=== PATIENT | male | born 1950 | race Caucasian/White ===

== ENCOUNTER 2020-09-20 11:22 | Day surgery (SDC) | payer MEDICARE, SELFPAY ==
[2020-09-16 10:52] VITALS: BMI 28.6
[2020-09-18 10:54] VITALS: BMI 27.2
--- NOTE | 2020-09-18 13:17 | HO.ANESPROP2 ---
Documented by User: Nany Myers 09/18/20 13:18 HPI - Anesthesia Eval Consult details Narrative: 70yo M for Colonoscopy PMFSH Active Problems Active Problems: All Active Problems (Updated 09/18/20 @ 10:53 by Olive Aguirre) Positive FIT (fecal immunochemical test) (Acute) Squamous cell cancer of multiple sites of skin of upper arm (Acute) Tobacco abuse (Acute) Bipolar 2 disorder (Acute) Hypercholesterolemia (Acute) Past Medical History Medical History Bipolar 2 disorder Compression fracture of T12 vertebra COVID-19 vaccine series completed History of renal calculi Hypercholesterolemia Periumbilical hernia Squamous cell cancer of multiple sites of skin of upper arm Tardive dyskinesia Tobacco abuse Tubular adenoma of colon Family History Family History Father No problems noted. Mother No problems noted. Paternal Grandmother CAD (coronary artery disease) Paternal Grandfather Pancreatic cancer Sister Dementia Myocardial infarction Blood clotting disorder Maciel-Stovin syndrome Surgical History Surgical History History of cataract surgery Hx of colonoscopy Hx of lithotripsy Social History Social History Alcohol intake: former Year quit: 1999 Smoking Status: Current every day smoker Tobacco Type: Cigarette Cigarettes Per Day: 12 Use of substances other than those prescribed or required for medical reasons: No Are you DNR?: No Advance Directives: No Advance Directives Information Provided: No Advance Directives on File: No Meds Allergies Allergy/AdvReac Type Severity Reaction Status Date / Time No Known Allergies Allergy Verified 09/18/20 10:53 Home Medications Medication Instructions Recorded Confirmed Last Taken Type No Known Home Meds 09/18/20 09/18/20 Unknown History Exam Exam Date and Time: September 18, 2020 1317 Height,Weight and Vital Signs: Height 5 ft 7 in Weight 78.925 kg Assessment and Plan Assessment Anesthesia Assessment: Chart Reviewed Documented by User: Mildred Ahn 09/20/20 11:51 PMFSH Past Medical History Medical History Bipolar 2 disorder Compression fracture of T12 vertebra COVID-19 vaccine series completed History of renal calculi Hypercholesterolemia Periumbilical hernia Squamous cell cancer of multiple sites of skin of upper arm Tardive dyskinesia Tobacco abuse Tubular adenoma of colon Family History Family History Father No problems noted. Mother No problems noted. Paternal Grandmother CAD (coronary artery disease) Paternal Grandfather Pancreatic cancer Sister Dementia Myocardial infarction Blood clotting disorder Maciel-Stovin syndrome Surgical History Surgical History History of cataract surgery Hx of colonoscopy Hx of lithotripsy Social History Social History Alcohol intake: former Year quit: 1999 Smoking Status: Current every day smoker Tobacco Type: Cigarette Cigarettes Per Day: 12 Use of substances other than those prescribed or required for medical reasons: No Are you DNR?: No Advance Directives: No Advance Directives Information Provided: No Advance Directives on File: No Meds Allergies Allergy/AdvReac Type Severity Reaction Status Date / Time No Known Allergies Allergy Verified 09/18/20 10:53 Home Medications Medication Instructions Recorded Confirmed Last Taken Type No Known Home Meds 09/18/20 09/18/20 Unknown History Exam Airway Mallampati Class: II TM Dist: >3cm Neck ROM: Full Assessment and Plan Assessment Anesthesia Assessment: Anesthesia Plan Discussed Final Anesthetic Review ASA Class: III Final Preanesthetic Review: No Changes in Pt Med Stat, Meds/Allgs Chart Reviewed, Consent Obtained/Reviewed and Anes Risks/Benef Reviewed Patient Risk: Intermediate Procedure Risk: Low Assessment/Block/Sedation in SS: Assess/Block/Sedation-SS Anesthetic Plan Anesthetic Plan: MAC: Disposition: Standard PACU
[2020-09-20] MEDS: Lactated Ringers 1,000 ML 100 ML IVCONT (12:02)
[2020-09-20 13:02] VITALS: BP 101/60; PULSE 60; RESP 16; TEMP 36.6; O2SAT 98
--- NOTE | 2020-09-20 13:08 | P.BOP_ITS ---
Brief Operative Note Date of Service: 09/20/20 Pre-op diagnosis: Screening Post-op diagnosis: other (Colon polyps) Procedure: Colonoscopy to the cecum and TI with biopsy and removal of polyps, snare polypectomies, and placement of 2 Resolution clips on polypectomy site at 20cm Surgeon: Florencio Mas Anesthesia: MAC Was an Calender Let Off Helper used for this Procedure?: No Estimated blood loss (mL): 4.0 Pathology: other (A. Transverse colon polyps B. Ascending colon polyps C. Polyp at 20cm) Condition: stable Disposition: PACU
[2020-09-20 13:17] VITALS: BP 131/78; PULSE 80; RESP 16; TEMP 36.6; O2SAT 96
--- NOTE | 2020-09-20 16:28 | OP_ITS ---
SURGEON: Florencio Mas MD INDICATIONS: Full consent has been obtained from him for this, including risks of bleeding and perforation. PREOPERATIVE DIAGNOSIS: POSTOPERATIVE DIAGNOSIS: PROCEDURE PERFORMED: Colonoscopy to cecum and terminal ileum with snare polypectomy, biopsy and removal of polyps, and placement of 2 resolution clips on the polypectomy at 20 cm. ESTIMATED BLOOD LOSS: COMPLICATIONS: ANESTHESIA: Monitored anesthesia care. ASSISTANTS: SPECIMENS: PREOPERATIVE DIAGNOSES: Colorectal cancer screening and personal history of tubular adenoma of the colon. POSTOPERATIVE DIAGNOSES: Colorectal cancer screening and personal history of tubular adenoma of the colon, colon polyps, diverticulosis, and internal hemorrhoids. DESCRIPTION OF PROCEDURE: The patient was placed in the left lateral decubitus position. The digital rectal exam revealed no abnormalities. The Olympus video pediatric colonoscope was entered into the rectum and advanced easily to the cecum. Once in the cecum, I did identify normal-appearing cecal pouch other than a diverticulum of the cecum. The terminal ileum was cannulated and appeared normal. The scope was withdrawn back in the colon. The entire cecum and ileocecal valve appeared normal otherwise. The scope was then slowly withdrawn assessing all mucosal surfaces carefully. Preparation was excellent. There was a moderate amount of diverticulosis in the ascending colon. In the more distal ascending colon, were 2 flat approximately 10 to 12 mm polyps, which were each snared and recovered by suction and placed in the same container. The polypectomy sites appeared clean, without any sign of residual polyp nor bleeding. In the transverse colon, were 2 flat approximately 4 mm polyps, which were each biopsied and completely removed with cold biopsy forceps. Also in the transverse colon, was an approximately 10 mm polyp, which was snared and recovered by suction. The polypectomy site appeared clean, without any sign of residual polyp nor bleeding. All of those polyps were placed in the same container. At 20 cm, was a relatively flat approximately 10 to 12 mm polyp, which was snared and recovered by suction. The polypectomy site appeared to be free of any residual polyp tissue, but there was some minimal oozing. Two clips were placed with good deployment and good hemostasis. I did not visualize any other polyps, colitis, nor angiodysplasia. There was a moderate amount of diverticulosis in the sigmoid colon. In the rectum, scope was retroflexed visualizing internal hemorrhoids, but no other pathology. The rectal mucosa appeared normal. The scope was straightened out and withdrawn from the patient. He tolerated the procedure well and was returned to the recovery area in stable condition. IMPRESSION: 1. Colon polyps, status post snare polypectomy, biopsy and removal, and placement of 2 resolution clips on the polypectomy site at 20 cm. 2. Diverticulosis. 3. Internal hemorrhoids. PLAN: The results of the pathology will be checked. I would recommend a repeat colonoscopy in 5 years. He was advised not to use any aspirin and NSAIDs for 1 week. He will otherwise see me on a p.r.n. basis. MD MAYA Rust/AMADOR / [phone] MTDD
== END 2020-09-20 14:08 | disposition home or self-care (01) ==
PROVIDERS: PCP Internal Medicine; Visit Provider Internal Medicine
PROC: 0DJD8ZZ Inspection of Lower Intestinal Tract, Via Natural or Artificial Opening Endoscopic (ICD-10-PCS; CPT 45378; principal; 2020-09-20 11:50)
DX: Z12.11 Encounter for screening for malignant neoplasm of colon (principal); Z86.010 Personal history of colon polyps; D12.2 Benign neoplasm of ascending colon; D12.3 Benign neoplasm of transverse colon; D12.5 Benign neoplasm of sigmoid colon; G24.01 Drug induced subacute dyskinesia; Z85.828 Personal history of other malignant neoplasm of skin; K57.30 Diverticulosis of large intestine without perforation or abscess without bleeding; K64.8 Other hemorrhoids; F17.210 Nicotine dependence, cigarettes, uncomplicated
CPT/HCPCS: 45385; 45380; 88305

== ENCOUNTER 2020-10-29 09:54 | Outpatient (REF) | payer MEDICARE, SELFPAY ==
[2020-10-29 10:51] LABS: Hematocrit 45.3 % (42-52); Hemoglobin 15.8 g/dl (14.0-18.0); Mean Corpuscular HGB Conc 34.9 g/dl (31.0-36.0); Mean Corpuscular Hemoglobin 33.7 pg (27.0-33.0); Mean Corpuscular Volume 96.6 fL (80-98); Mean Platelet Volume 10.4 fL (9.4-12.4); Platelet Count 215 X10*3/uL (160-400); Red Blood Count 4.69 X10*6/uL (4.60-5.80); Red Cell Distribution Width 12.7 % (11.0-16.0); White Blood Count 6.9 X10*3/uL (4.8-10.8)
[2020-10-29 11:16] LABS: Alanine Aminotransferase 11 U/L (0-40); Alkaline Phosphatase 87 U/L (39-117); Anion Gap 11 (12-20); Aspartate Amino Transferase 16 U/L (5-37); Bilirubin Total 0.5 mg/dL (0.0-1.0); Blood Urea Nitrogen 16 mg/dL (9-16); Calcium 9.4 mg/dL (8.4-10.2); Carbon Dioxide 28 mmol/L (22-29); Chloride 110 mmol/L (96-108); Cholesterol 220 mg/dL; Estimated Glomerular Filt Rate 56; Glucose Fasting 100 mg/dL (60-99); HDL Cholesterol 37 mg/dL; LDL Cholesterol Calculated 156 mg/dl; Potassium 4.6 mmol/L (3.3-5.1); Sodium 144 mmol/L (135-145); Total Protein 6.6 g/dL (6.5-8.0); Triglycerides 138 mg/dL
[2020-10-29 11:33] LABS: HBS Num1 5.89 mIU/mL (0-7.99); HBc Num1 0.07 S/CO (0.00-0.79); HBsAGNum1 0.21 S/CO (0.00-0.99); Hepatitis B Core Antibody Nonreactive (Nonreactive); Hepatitis B Surface Antigen Negative (Negative); ~HepC Num1 0.05 S/CO (0.00-0.79); ~Hepatitis B Surface Antibody NONREACTIVE (Nonreactive); ~Hepatitis C Antibody Nonreactive (Nonreactive)
[2020-10-29 11:37] LABS: Prostate Specific Antigen Scr 0.56 ng/mL (<0.05-4.0)
[2020-10-29 11:38] LABS: Glucose Urine UA NEG (NEG); Leukocyte Esterase Urine NEG (NEG); Nitrite Urine NEG (NEG); Urine Blood 1+ (NEG); Urine Ketones NEG (NEG); Urine Protein NEG (NEG-TRACE)
[2020-10-29 11:51] LABS: Appearance Urine CLEAR; Color Urine YELLOW
[2020-10-29 12:20] LABS: RBC Urine 0-2 /HPF (0); Squamous Epithelial Cell Urine TRACE /LPF; WBC Urine 0-2 /HPF (0-4)
== END 2020-10-29 09:55 | disposition home or self-care (01) ==
LOC: HO.LAB 09:54
PROVIDERS: PCP Internal Medicine; Visit Provider Physician Assistant
DX: Z01.84 Encounter for antibody response examination (principal); Z13.220 Encounter for screening for lipoid disorders; Z13.1 Encounter for screening for diabetes mellitus; Z11.3 Encounter for screening for infections with a predominantly sexual mode of transmission; Z12.5 Encounter for screening for malignant neoplasm of prostate; Z11.59 Encounter for screening for other viral diseases; I10 Essential (primary) hypertension
CPT/HCPCS: 36415; 80053; 80061; 81001; 84153; 85027; 86704; 86706; 86803; 87340

== ENCOUNTER 2021-09-23 09:27 | Outpatient (REF) | payer MEDICARE, SELFPAY ==
[2021-09-23 09:49] LABS: MANUAL DIFF FLAG NO
[2021-09-23 10:56] LABS: Estimated Average Glucose 105 mg/dL; Hemoglobin A1c % 5.3 %
[2021-09-23 11:00] LABS: Basophils Absolute Auto 0.1 X10*3/uL (0.0-0.2); Basophils Percent Auto 0.7 % (0-2); Eosinophils Absolute Auto 0.3 X10*3/uL (0.0-0.4); Eosinophils Percent Auto 4.4 % (0-4); Hematocrit 45.7 % (42.0-52.0); Hemoglobin 15.4 g/dl (14.0-18.0); Imm Gran Abs Auto 0.02 X10*3/uL (0.00-0.03); Imm Gran Pct Auto 0.3 % (0.0-0.4); Lymphocytes Absolute Auto 1.4 X10*3/uL (1.2-4.9); Lymphocytes Percent Auto 20.9 % (20-40); Mean Corpuscular HGB Conc 33.7 g/dl (31.0-36.0); Mean Corpuscular Volume 98.1 fL (80.0-98.0); Mean Platelet Volume 10.6 fL (9.4-12.4); Monocytes Absolute Auto 0.7 X10*3/uL (0.1-1.2); Monocytes Percent Auto 9.5 % (2-11); Neutrophils Absolute Auto 4.4 x10*3/uL (2.0-8.3); Neutrophils Percent Auto 64.2 % (45-73); Platelet Count 233 X10*3/uL (160-400); Red Blood Count 4.66 X10*6/uL (4.60-5.80); Red Cell Distribution Width 12.8 % (11.0-16.0); White Blood Count 6.8 X10*3/uL (4.8-10.8)
[2021-09-23 11:10] LABS: Alanine Aminotransferase 14 U/L (0-40); Albumin Level 3.9 g/dL (3.5-5.0); Alkaline Phosphatase 78 U/L (39-117); Anion Gap 11 (12-20); Aspartate Amino Transferase 15 U/L (5-37); Bilirubin Total 0.5 mg/dL (0.0-1.0); Blood Urea Nitrogen 15 mg/dL (9-16); Calcium 9.7 mg/dL (8.4-10.2); Carbon Dioxide 29 mmol/L (22-29); Chloride 108 mmol/L (96-108); Cholesterol 200 mg/dL; Estimated Glomerular Filt Rate 54; Glucose Random 100 mg/dL (60-115); HDL Cholesterol 34 mg/dL; LDL Cholesterol Calculated 145 mg/dl; Potassium 5.7 mmol/L (3.3-5.1); Sodium 142 mmol/L (135-145); Total Protein 6.7 g/dL (6.5-8.0); Triglycerides 106 mg/dL
[2021-09-23 11:31] LABS: Prostate Specific Antigen Scr 0.56 ng/mL (<0.05-4.0); Thyroid Stimulating Hormone 2.27 uIU/mL (0.32-4.0)
[2021-09-23 12:10] LABS: Vitamin B12 277 pg/mL (200-900)
== END 2021-09-23 09:28 | disposition home or self-care (01) ==
LOC: HO.LAB 09:27
PROVIDERS: PCP Internal Medicine; Visit Provider Internal Medicine
DX: Z12.5 Encounter for screening for malignant neoplasm of prostate (principal); R73.01 Impaired fasting glucose; E78.00 Pure hypercholesterolemia, unspecified
CPT/HCPCS: 36415; 80053; 80061; 82607; 82746; 83036; 84153; 84439; 84443; 85025

== ENCOUNTER 2021-10-10 10:23 | Outpatient (REF) | payer MEDICARE, SELFPAY ==
[2021-10-10 12:33] LABS: Anion Gap 13 (12-20); Blood Urea Nitrogen 22 mg/dL (9-16); Carbon Dioxide 26 mmol/L (22-29); Chloride 107 mmol/L (96-108); Estimated Glomerular Filt Rate 52; Glucose Random 95 mg/dL (60-115); Potassium 4.7 mmol/L (3.3-5.1); Sodium 141 mmol/L (135-145)
== END 2021-10-10 10:24 | disposition home or self-care (01) ==
LOC: HO.LAB 10:23
PROVIDERS: PCP Internal Medicine; Visit Provider Internal Medicine
DX: E87.5 Hyperkalemia (principal)
CPT/HCPCS: 36415; 80048

== ENCOUNTER 2021-11-10 22:55 | Emergency (ER) | payer MEDICARE, SELFPAY ==
--- NOTE | ~2021-11-10 | XR_ITS ---
EXAMINATION: XR CHEST CLINICAL INFORMATION: Chest pain COMPARISON: None TECHNIQUE: Frontal view of the chest was obtained. FINDINGS: Heart size upper limits of normal. No infiltrates, pleural effusions or lung masses are seen. There is no evidence of CHF. Degenerative changes are present in the spine. XR/XR chest 1V IMPRESSION: No acute intrathoracic disease.
--- NOTE | 2021-11-10 22:56 | ECG_ITS ---
Test Reason : cp Blood Pressure : / mmHG Vent. Rate : 058 BPM Atrial Rate : 058 BPM P-R Int : 178 ms QRS Dur : 086 ms QT Int : 432 ms P-R-T Axes : 051 024 077 degrees QTc Int : 424 ms Sinus bradycardia with marked sinus arrhythmia Posterior infarct , possibly acute Inferior injury pattern ACUTE [place] / STEMI Consider right ventricular involvement in acute inferior infarct Abnormal ECG When compared with ECG of 29-MAY-2016 15:55, ST elevation has replaced ST depression in Inferior leads ST more depressed Anterior leads Referred By: Generic ED Physician Electronically Signed By:JOANN GRAVES MD
[2021-11-10 23:03] VITALS: BP 136/60; BP 169/80; PULSE 56; PULSE 76; RESP 20; TEMP 36.8; O2SAT 100; O2SAT 98; BMI 27.1
--- NOTE | 2021-11-10 23:05 | ED_ITS ---
HPI - Chest Pain General Chief Complaint: Chest Pain Stated Complaint: chest pain Time Seen by Provider: 11/10/21 23:05 History of Present Illness HPI narrative: Patient is 71 years old male smoker with history of bipolar disorder hyperlipidemia impaired glucose tolerance test came to the ER for chest pain which localized mid chest radiating to jaw and left arm for last 40 minutes. Eddie carlyn denies any shortness of breath no nausea no vomiting never had similar chest pain in the past Related Data Home Medications Medication Instructions Recorded Confirmed No Known Home Meds 09/18/20 06/26/21 Allergies Allergy/AdvReac Type Severity Reaction Status Date / Time No Known Allergies Allergy Verified 11/10/21 23:03 Review of Systems Review of Systems: Yes all other systems are reviewed and are negative [facility] Past Medical History Medical History Bipolar 2 disorder Compression fracture of T12 vertebra COVID-19 vaccine series completed History of renal calculi Hypercholesterolemia Need for hepatitis B vaccination Periumbilical hernia Screening for diabetes mellitus (DM) Screening for hypercholesterolemia 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 Mother No problems noted. Paternal Grandmother CAD (coronary artery disease) Paternal Grandfather Pancreatic cancer Sister Dementia Myocardial infarction Blood clotting disorder Maciel-Stovin syndrome Social History Social History Housing: Apartment Alcohol intake: former Year quit: 1999 Patient Tobacco Use Status: Current everyday Tobacco user Tobacco use type: Cigarette Cigarettes Per Day: 14 e-Cigarette/Vaping Use: Never Used Second Hand Smoke Exposure: Yes Advance Directives: No service: No Current occupational status: retired Cognitive needs: No Hearing needs: No Vision needs: Yes Physical Exam Vital Signs: Vital Signs: Last Vital Signs Temp 98.3 F 11/10/21 23:03 Pulse 68 11/10/21 23:22 Resp 16 11/10/21 23:18 BP 138/72 11/10/21 23:22 Pulse Ox 97 11/10/21 23:18 O2 Del Method 11/10/21 23:18 BMI result Body Mass Index 27.1 Appearance: Alert. Oriented X3. No acute distress. Eyes: PERRLA, No Nystagmus ENT: Pharynx normal. Oral Mucosa moist Neck: Normal inspection. Neck supple. CVS: Normal heart rate and rhythm. Pulses normal no murmur rub or gallop. Respiratory: No respiratory distress. Equal air entry bilateral, no wheezing/rales/rhonchi Abdomen: Soft and nontender. Bowel sounds are present, no mass palpable, no CVA tenderness Skin: Skin warm and dry. Normal skin color. Normal skin turgor. Extremities: No lower extremity edema. No calf tenderness Neuro: Oriented X 3. No motor deficit. No sensory deficit.No cerebellar signs , cranial nerves II-XII intact MDM - Chest Pain MDM Narrative Medical decision making narrative: 2309 patient with posterior wall KS with slight ST coving in inferior leads case discussed with Dr. lujan at [facility] accepted the patient for transfer to CCU patient already received aspirin at home give Brilinta 180 mg heparin 5000 unit IV and nitroglycerin Medical Records Data Attestation: I reviewed the patient's medical records. Lab Data Attestation: I reviewed the patient's lab results. Result diagrams: 11/10/21 23:10 11/10/21 23:10 Labs: Lab Results 11/10/21 11/10/21 11/10/21 Range/Units 23:10 23:10 23:10 WBC 8.8 (4.8-10.8) X10*3/uL RBC 4.47 L (4.60-5.80) X10*6/uL Hgb 15.1 (14.0-18.0) g/dl Hct 42.7 (42.0-52.0) % MCV 95.5 (80.0-98.0) fL MCH 33.8 H (27.0-33.0) pg MCHC 35.4 (31.0-36.0) g/dl RDW 12.9 (11.0-16.0) % Plt Count 199 (160-400) X10*3/uL MPV 10.1 (9.4-12.4) fL Immature Gran % (Auto) 0.2 (0.0-0.4) % Neut % (Auto) 59.5 (45-73) % Lymph % (Auto) 27.0 (20-40) % Cecil % (Auto) 9.1 (2-11) % Eos % (Auto) 3.6 (0-4) % Baso % (Auto) 0.6 (0-2) % Lymph # (Auto) 2.4 (1.2-4.9) X10*3/uL Cecil # (Auto) 0.8 (0.1-1.2) X10*3/uL Eos # (Auto) 0.3 (0.0-0.4) X10*3/uL Baso # (Auto) 0.1 (0.0-0.2) X10*3/uL Abs Immat Gran (auto) 0.02 (0.00-0.03) X10*3/uL Absolute Neuts (auto) 5.2 (2.0-8.3) x10*3/uL Absolute Nucleated RBC 0.000 (0.0-0.012) X10*3/uL Nucleated RBC % (auto) 0.0 (0.0-0.2) /100WBC PT (10.0-13.1) SEC INR (0.9-1.1) APTT (24.1-38.0) SEC Sodium 140 (135-145) mmol/L Potassium 3.5 D (3.3-5.1) mmol/L Chloride 105 (96-108) mmol/L Carbon Dioxide 27 (22-29) mmol/L Anion Gap 12 (12-20) BUN 14 (9-16) mg/dL Creatinine 1.46 H (0.5-1.4) mg/dL Estim Creat Clear Calc 44.6 Estimated GFR 48 Random Glucose 137 H D (60-115) mg/dL Calcium 8.9 (8.4-10.2) mg/dL Troponin I High Sens 8.0 (<3.5-35.0) ng/L COVID-19 (ALIA) (Negative) COVID-19 Clin Com 11/10/21 11/10/21 Range/Units 23:10 23:10 WBC (4.8-10.8) X10*3/uL RBC (4.60-5.80) X10*6/uL Hgb (14.0-18.0) g/dl Hct (42.0-52.0) % MCV (80.0-98.0) fL MCH (27.0-33.0) pg MCHC (31.0-36.0) g/dl RDW (11.0-16.0) % Plt Count (160-400) X10*3/uL MPV (9.4-12.4) fL Immature Gran % (Auto) (0.0-0.4) % Neut % (Auto) (45-73) % Lymph % (Auto) (20-40) % Cecil % (Auto) (2-11) % Eos % (Auto) (0-4) % Baso % (Auto) (0-2) % Lymph # (Auto) (1.2-4.9) X10*3/uL Cecil # (Auto) (0.1-1.2) X10*3/uL Eos # (Auto) (0.0-0.4) X10*3/uL Baso # (Auto) (0.0-0.2) X10*3/uL Abs Immat Gran (auto) (0.00-0.03) X10*3/uL Absolute Neuts (auto) (2.0-8.3) x10*3/uL Absolute Nucleated RBC (0.0-0.012) X10*3/uL Nucleated RBC % (auto) (0.0-0.2) /100WBC PT 11.7 (10.0-13.1) SEC INR 1.0 (0.9-1.1) APTT 31.6 (24.1-38.0) SEC Sodium (135-145) mmol/L Potassium (3.3-5.1) mmol/L Chloride (96-108) mmol/L Carbon Dioxide (22-29) mmol/L Anion Gap (12-20) BUN (9-16) mg/dL Creatinine (0.5-1.4) mg/dL Estim Creat Clear Calc Estimated GFR Random Glucose (60-115) mg/dL Calcium (8.4-10.2) mg/dL Troponin I High Sens (<3.5-35.0) ng/L COVID-19 (ALIA) Negative (Negative) COVID-19 Clin Com See Note ECG Data ECG #1: Attestation: I personally reviewed and interpreted this ECG as follows: Prior ECG tracings: not available for review Interpretation: sinus bradycardia heart rate [address] depression lead V1 V2 V3 with slight ST elevation in lead 3 and AVF suggestive of STEMI inferior posterior Critical Care Time Critical Care Time Critical Care Time: Yes Total Critical Care Time: 40 Attestation: I spent 40 minutes of critical care, with interventions, assessments, speaking to patient, consultants, and family. Discharge Plan Discharge Clinical Impression: ST elevation myocardial infarction (STEMI) Patient Disposition: [facility] Transfer Details: To [facility] under Dr Wilkins, Dr lujan Prescriptions: No Action No Known Home Meds Interventions: Acute Care Transfer Worksheet (ED) Last Done: 11/10/21 23:39 Discharge Date/Time: 11/10/21 23:41
[2021-11-10 23:11] VITALS: BP 169/90; PULSE 50
[2021-11-10] MEDS: Nitroglycerin 0.4 MG TAB.SUBL SUBLINGUAL ×2 (23:11→23:22)
--- NOTE | 2021-11-10 23:11 | PC.NURSE ---
@2307 DR DE LA FUENTE REQUESTS CALL OUT TO [facility] STAT LINE FOR STEMI PROTOCOL STAT CALL CENTER RN TAKES CALL BACK INFO, GIVES DR DR REEDER MD TO CALL US BACK @2309 [facility] CALLED FOR STEMI STANDBY @ DR MANCUSO REQUEST DISPATCH ANSWERS AND STATES THEY WILL SEND SOMEONE OVER RIGHT AWAY FOR STANDBY @2310 DR REEDER CALLS BACK TO SPEAK WITH DR SUDHAKAR DE LA FUENTE TAKES OVER CALL RIGHT AWAY @ 2313 DR DE LA FUENTE STATES PT TO GO TO CCU FOR CATH IN NEAR FUTURE
[2021-11-10] MEDS: Heparin Sodium,Porcine 5,000 UNIT/ML VIAL 5000 UNIT IVPUSH (23:14)
[2021-11-10] MEDS: Ticagrelor 90 MG TABLET 180 MG PO (23:14)
[2021-11-10 23:17] LABS: MANUAL DIFF FLAG NO
--- NOTE | 2021-11-10 23:17 | PC.NURSE ---
@7306 [facility] PT TX LINE CALLED TO VERIFY ROOM ASSIGNMENT VANE ANSWERS STATES AWAITING ROOM ASSIGNMENT @ THIS TIME, WILL CALL WHEN AVBAILABLE @ 2320 [facility] CALLED TO DO A CALL BOOK AND HOLD @[phone] [facility] PT TX LINE CALLS TO SAY THERE IS ROOM ASSIGNMENT [facility], MM, BED 16 RN TO RN [phone] ORTA FAX FACE SHEET TO [phone] [facility] HERE TO TRANSPORT NOW @ 11:22
[2021-11-10 23:18] VITALS: BP 137/82; PULSE 62; RESP 16; O2SAT 97
[2021-11-10 23:22] VITALS: BP 138/72; PULSE 68
[2021-11-10 23:26] LABS: Basophils Absolute Auto 0.1 X10*3/uL (0.0-0.2); Basophils Percent Auto 0.6 % (0-2); Eosinophils Absolute Auto 0.3 X10*3/uL (0.0-0.4); Eosinophils Percent Auto 3.6 % (0-4); Hematocrit 42.7 % (42.0-52.0); Hemoglobin 15.1 g/dl (14.0-18.0); Imm Gran Abs Auto 0.02 X10*3/uL (0.00-0.03); Imm Gran Pct Auto 0.2 % (0.0-0.4); Lymphocytes Absolute Auto 2.4 X10*3/uL (1.2-4.9); Mean Corpuscular HGB Conc 35.4 g/dl (31.0-36.0); Mean Corpuscular Hemoglobin 33.8 pg (27.0-33.0); Mean Corpuscular Volume 95.5 fL (80.0-98.0); Mean Platelet Volume 10.1 fL (9.4-12.4); Monocytes Absolute Auto 0.8 X10*3/uL (0.1-1.2); Monocytes Percent Auto 9.1 % (2-11); Neutrophils Absolute Auto 5.2 x10*3/uL (2.0-8.3); Neutrophils Percent Auto 59.5 % (45-73); Platelet Count 199 X10*3/uL (160-400); Red Blood Count 4.47 X10*6/uL (4.60-5.80); Red Cell Distribution Width 12.9 % (11.0-16.0); White Blood Count 8.8 X10*3/uL (4.8-10.8)
[2021-11-10 23:32] LABS: Prothrombin Time 11.7 SEC (10.0-13.1)
[2021-11-10 23:34] LABS: Partial Thromboplastin Time 31.6 SEC (24.1-38.0)
[2021-11-10] MEDS: Heparin Sodium,Porcine/1/2NS 25,000 UNIT/250 ML IV.SOLN 9.42 UNIT IVCONT (23:38)
[2021-11-10 23:43] LABS: Anion Gap 12 (12-20); Blood Urea Nitrogen 14 mg/dL (9-16); Calcium 8.9 mg/dL (8.4-10.2); Carbon Dioxide 27 mmol/L (22-29); Chloride 105 mmol/L (96-108); Creatinine Clr Calc Pharmacy 44.6; Estimated Glomerular Filt Rate 48; Glucose Random 137 mg/dL (60-115); Potassium 3.5 mmol/L (3.3-5.1); Sodium 140 mmol/L (135-145)
--- NOTE | 2021-11-10 23:57 | PC.NURSE ---
rn to rn with Steph JOHNSON at [facility]
[2021-11-11 00:10] LABS: COVID-19 Test Negative (Negative); IDNOW Serial# 08D9AD1C
== END 2021-11-10 23:41 | disposition short-term general hospital (02) ==
PROVIDERS: Emergency Provider Internal Medicine
DX: I21.3 ST elevation (STEMI) myocardial infarction of unspecified site (principal); R07.89 Other chest pain; E78.5 Hyperlipidemia, unspecified; F17.210 Nicotine dependence, cigarettes, uncomplicated; Z71.6 Tobacco abuse counseling; Z20.822 Contact with and (suspected) exposure to COVID-19; Z79.899 Other long term (current) drug therapy
CPT/HCPCS: 36415; 71045; 80048; 84484; 85025; 85610; 85730; 87635; 93005; 96374; 99285

== ENCOUNTER → 2022-01-12 11:23 | Outpatient (BNVA) | payer MEDICARE, SELFPAY | PROVIDERS: PCP Internal Medicine; Referring Provider Internal Medicine; Visit Provider Internal Medicine Cardiovascular Disease | DX: I25.2 Old myocardial infarction (principal); Z87.891 Personal history of nicotine dependence; Z95.5 Presence of coronary angioplasty implant and graft; Z79.82 Long term (current) use of aspirin; Z79.899 Other long term (current) drug therapy | CPT/HCPCS: 99202 ==

== ENCOUNTER 2022-03-04 10:23 | Outpatient (REF) | payer MEDICARE, SELFPAY ==
[2022-03-04 11:15] LABS: Anion Gap 14 (12-20); Blood Urea Nitrogen 19 mg/dL (9-16); Calcium 9.6 mg/dL (8.4-10.2); Carbon Dioxide 29 mmol/L (22-29); Chloride 106 mmol/L (96-108); Cholesterol 128 mg/dL; Estimated Glomerular Filt Rate 50; Glucose Random 104 mg/dL (60-115); HDL Cholesterol 44 mg/dL; LDL Cholesterol Calculated 61 mg/dl; Potassium 4.9 mmol/L (3.3-5.1); Sodium 144 mmol/L (135-145); Triglycerides 119 mg/dL
== END 2022-03-04 10:24 | disposition home or self-care (01) ==
LOC: HO.LAB 10:23
PROVIDERS: PCP Internal Medicine; Visit Provider Physician Assistant
DX: I25.10 Atherosclerotic heart disease of native coronary artery without angina pectoris (principal)
CPT/HCPCS: 36415; 80048; 80061

== ENCOUNTER 2022-06-23 09:25 | Outpatient (REF) | payer MEDICARE, SELFPAY ==
[2022-06-23 09:38] LABS: MANUAL DIFF FLAG NO
[2022-06-23 10:09] LABS: Basophils Absolute Auto 0.1 X10*3/uL (0.0-0.2); Basophils Percent Auto 0.7 % (0-2); Eosinophils Absolute Auto 0.4 X10*3/uL (0.0-0.4); Eosinophils Percent Auto 5.6 % (0-4); Hematocrit 45.6 % (42.0-52.0); Hemoglobin 15.6 g/dl (14.0-18.0); Imm Gran Abs Auto 0.02 X10*3/uL (0.00-0.03); Imm Gran Pct Auto 0.3 % (0.0-0.4); Lymphocytes Absolute Auto 1.8 X10*3/uL (1.2-4.9); Lymphocytes Percent Auto 24.9 % (20-40); Mean Corpuscular HGB Conc 34.2 g/dl (31.0-36.0); Mean Corpuscular Hemoglobin 33.1 pg (27.0-33.0); Mean Corpuscular Volume 96.8 fL (80.0-98.0); Mean Platelet Volume 10.5 fL (9.4-12.4); Monocytes Absolute Auto 0.7 X10*3/uL (0.1-1.2); Monocytes Percent Auto 9.8 % (2-11); Neutrophils Absolute Auto 4.2 x10*3/uL (2.0-8.3); Neutrophils Percent Auto 58.7 % (45-73); Platelet Count 205 X10*3/uL (160-400); Red Blood Count 4.71 X10*6/uL (4.60-5.80); Red Cell Distribution Width 12.5 % (11.0-16.0); White Blood Count 7.1 X10*3/uL (4.8-10.8)
[2022-06-23 10:21] LABS: Estimated Average Glucose 114 mg/dL; Hemoglobin A1c % 5.6 %
[2022-06-23 11:21] LABS: Alanine Aminotransferase 57 U/L (0-40); Alkaline Phosphatase 81 U/L (39-117); Anion Gap 12 (12-20); Aspartate Amino Transferase 39 U/L (5-37); Bilirubin Total 1.6 mg/dL (0.0-1.0); Blood Urea Nitrogen 25 mg/dL (9-16); Calcium 9.2 mg/dL (8.4-10.2); Carbon Dioxide 29 mmol/L (22-29); Chloride 107 mmol/L (96-108); Cholesterol 112 mg/dL; Estimated Glomerular Filt Rate 45; Glucose Random 96 mg/dL (60-115); HDL Cholesterol 39 mg/dL; LDL Cholesterol Calculated 52 mg/dl; Potassium 4.5 mmol/L (3.3-5.1); Sodium 143 mmol/L (135-145); Total Protein 6.6 g/dL (6.5-8.0); Triglycerides 108 mg/dL
[2022-06-23 11:31] LABS: Folate 15.8 ng/mL (> or = 4.0); Free T4 (Free Thyroxine) 0.93 ng/dL (0.71-1.85); Prostate Specific Antigen Scr 0.55 ng/mL (<0.05-4.0); Thyroid Stimulating Hormone 4.53 uIU/mL (0.32-4.0); Vitamin B12 454 pg/mL (200-900)
== END 2022-06-23 09:26 | disposition home or self-care (01) ==
LOC: HO.LAB 09:25
PROVIDERS: PCP Internal Medicine; Visit Provider Internal Medicine
DX: I25.10 Atherosclerotic heart disease of native coronary artery without angina pectoris (principal); E78.00 Pure hypercholesterolemia, unspecified; R79.89 Other specified abnormal findings of blood chemistry; Z12.5 Encounter for screening for malignant neoplasm of prostate
CPT/HCPCS: 36415; 80053; 80061; 82607; 82746; 83036; 84153; 84439; 84443; 85025

== ENCOUNTER 2022-06-26 08:18 | Outpatient (REF) | payer MEDICARE, SELFPAY ==
[2022-06-26 10:04] LABS: Free T4 (Free Thyroxine) 0.91 ng/dL (0.71-1.85); HBS Num1 3.58 mIU/mL (0-7.99); HBc Num1 0.09 S/CO (0.00-0.79); HBsAGNum1 0.36 S/CO (0.00-0.99); Hepatitis B Core Antibody Nonreactive (Nonreactive); Hepatitis B Surface Antigen Negative (Negative); ~HepC Num1 0.07 S/CO (0.00-0.79); ~Hepatitis B Surface Antibody NONREACTIVE (Nonreactive); ~Hepatitis C Antibody Nonreactive (Nonreactive)
== END 2022-06-26 08:19 | disposition home or self-care (01) ==
LOC: HO.LAB 08:18
PROVIDERS: PCP Internal Medicine; Visit Provider Internal Medicine
DX: R94.6 Abnormal results of thyroid function studies (principal)
CPT/HCPCS: 36415; 84439; 86704; 86706; 86803; 87340

== ENCOUNTER → 2022-07-06 12:50 | Outpatient (BNVA) | payer MEDICARE, SELFPAY | PROVIDERS: PCP Internal Medicine; Referring Provider Internal Medicine; Visit Provider Internal Medicine Cardiovascular Disease | DX: I25.2 Old myocardial infarction (principal); R06.09 Other forms of dyspnea; Z79.82 Long term (current) use of aspirin; Z79.899 Other long term (current) drug therapy; Z87.891 Personal history of nicotine dependence; Z95.5 Presence of coronary angioplasty implant and graft | CPT/HCPCS: 99212 ==

== ENCOUNTER 2022-07-16 12:26 | Outpatient (REF) | payer MEDICARE, SELFPAY ==
[2022-07-16 14:18] LABS: Alanine Aminotransferase 44 U/L (0-40); Albumin Level 4.1 g/dL (3.5-5.0); Alkaline Phosphatase 93 U/L (39-117); Anion Gap 12 (12-20); Aspartate Amino Transferase 35 U/L (5-37); Bilirubin Total 1.5 mg/dL (0.0-1.0); Blood Urea Nitrogen 19 mg/dL (9-16); Carbon Dioxide 27 mmol/L (22-29); Chloride 107 mmol/L (96-108); Estimated Glomerular Filt Rate 55; Glucose Random 95 mg/dL (60-115); Sodium 141 mmol/L (135-145)
[2022-07-16 14:25] LABS: Free T4 (Free Thyroxine) 1.15 ng/dL (0.71-1.85); Thyroid Stimulating Hormone 1.88 uIU/mL (0.32-4.0)
[2022-07-17 08:08] LABS: HBS Num1 3.28 mIU/mL (0-7.99); HBc Num1 0.14 S/CO (0.00-0.79); HBsAGNum1 0.36 S/CO (0.00-0.99); Hepatitis B Core Antibody Nonreactive (Nonreactive); Hepatitis B Surface Antigen Negative (Negative); ~HepC Num1 0.14 S/CO (0.00-0.79); ~Hepatitis B Surface Antibody NONREACTIVE (Nonreactive); ~Hepatitis C Antibody Nonreactive (Nonreactive)
== END 2022-07-16 12:27 | disposition home or self-care (01) ==
LOC: HO.LAB 12:26
PROVIDERS: PCP Internal Medicine; Visit Provider Internal Medicine
DX: R79.89 Other specified abnormal findings of blood chemistry (principal); R94.6 Abnormal results of thyroid function studies
CPT/HCPCS: 36415; 80053; 84439; 84443; 86704; 86706; 86803; 87340

== ENCOUNTER 2022-07-23 08:25 | Outpatient (REF) | payer MEDICARE, SELFPAY ==
--- NOTE | ~2022-07-23 | US_ITS ---
EXAMINATION: US ABDOMEN COMPLETE CLINICAL INFORMATION: Elevated LFTs. COMPARISON: Ultrasound retroperitoneal limited (renal only) 12/28/2017. CT abdomen and pelvis without contrast 10/23/2017. Ultrasound retroperitoneal limited (renal only) 12/01/2016. X-ray abdomen KUB 05/27/2016 and 01/15/2016. TECHNIQUE: Real-time imaging of the abdominal viscera. FINDINGS: PANCREAS: The pancreas appears unremarkable, without masses or ductal dilatation, with the exception of the tail which is obscured by bowel gas. ABDOMINAL AORTA: Atherosclerotic changes are seen in the abdominal aorta without evidence of aneurysm. INFERIOR VENA CAVA: Visualized portions are normal. LIVER: The liver is normal in size. The liver contour is normal. Parenchymal echogenicity is normal. No focal hepatic lesion. There is no intrahepatic biliary duct dilatation seen. GALLBLADDER: Normal. The gallbladder is physiologically distended without evidence of stones, sludge, polyps, wall thickening or pericholecystic fluid. COMMON BILE DUCT: Normal in caliber measuring 0.3 cm in diameter. RIGHT KIDNEY: Two stones are noted at the lower pole of the right kidney measuring 3 mm in size each. No hydronephrosis or focal parenchymal lesions. The kidney measures 11.2 cm in maximum dimension. LEFT KIDNEY: Two stones are noted at the lower pole the left kidney measuring 3 mm in size each. No hydronephrosis or focal parenchymal lesions. The kidney measures 11.1 cm in maximum dimension. SPLEEN: Normal. The spleen measures 11.4 cm in maximum dimension. FREE FLUID: None. US/US abdomen complete IMPRESSION: Bilateral nonobstructing renal calculi.
== END 2022-07-23 08:26 | disposition home or self-care (01) ==
LOC: HO.US 08:25
PROVIDERS: PCP Internal Medicine; Visit Provider Internal Medicine
DX: R79.89 Other specified abnormal findings of blood chemistry (principal)
CPT/HCPCS: 76700

== ENCOUNTER 2022-11-09 13:36 | Outpatient (AMB) | payer MEDICARE, SELFPAY ==
[2022-11-09 14:10] VITALS: BP 88/48; PULSE 67; O2SAT 98; BMI 29.8
--- NOTE | 2022-11-09 14:10 | MHC.OFFVIS ---
Intake Vital Signs 11/09/22 14:10 Height 5 ft 7 in Weight 190 lb BMI 29.8 BP 88/48 L Blood Pressure Location Lt brachial Position Sitting Pulse 67 Pulse Source Pulse Oximeter Pulse Oximetry (%) 98 Oxygen Delivery Method Room Air Intake Visit Reasons: 4 month f/u Intake Note: 4 mo follow up chest pain,one year since cardiac procedure @ [facility] 11/10/2021, states no noticeable pain, pt states more aware of limitations. Has a question about Brilanta Accompanied by: Self / Same As Patient Allergies No Known Allergies Allergy (Verified 11/09/22 14:15) Medication List - Last Reconciled 11/09/22 by Law Irizarry MD aspirin 81 mg PO DAILY atorvastatin 80 mg PO DAILY 90 days metoprolol succinate ER 25 mg PO DAILY 90 days nicotine 1 patch transdermal DAILY ticagrelor 90 mg PO BID 90 days HPI HPI Comments History of Present Illness Details 72-year-old gentleman who has background history of tobacco abuse, bipolar disorder, hyperlipidemia and impaired fasting glucose levels who presented to [facility] in October 2021 with chest pain. He was experiencing indigestion like feeling which was not improving and some arm discomfort. His EKG showed posterior wall WA and was transferred emergently to [facility]. He underwent cardiac catheterization at that time by Dr. 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 He underwent drug-eluting stent with a 3 x 18 mm resolute brody. 11/09/22: He is here for follow-up. He has been doing well. No chest pain or shortness of breath. He has been taking medication regularly. He is asking whether he can stop Brilinta as 1 year has passed since is PCI. [facility] Medical History Bipolar 2 disorder Compression fracture of T12 vertebra COVID-19 vaccine series completed History of renal calculi Hypercholesterolemia Need for hepatitis B vaccination Periumbilical hernia Screening for diabetes mellitus (DM) Screening for hypercholesterolemia Squamous cell cancer of multiple sites of skin of upper arm Tardive dyskinesia Tobacco abuse Tubular adenoma of colon Surgical History Coronary angioplasty status History of cataract surgery Hx of colonoscopy Hx of lithotripsy Family History Father No problems noted. Mother No problems noted. Paternal Grandmother CAD (coronary artery disease) Paternal Grandfather Pancreatic cancer Sister Dementia Myocardial infarction Blood clotting disorder Maciel-Stovin syndrome Social History Housing: Apartment Alcohol intake: former Year quit: 1999 Patient Tobacco Use Status: Former Tobacco user Quit Date: October 2021 Tobacco use type: Cigarette Cigarettes Per Day: 14 e-Cigarette/Vaping Use: Never Used Second Hand Smoke Exposure: Yes service: No Current occupational status: retired Cognitive needs: No Hearing needs: No Vision needs: Yes Review of Systems Const Denies chills, Denies fatigue, Denies fever(s), Denies frequent falls, Denies weakness and Denies weight loss ENT Denies dizziness Card Denies chest pain, Denies leg edema, Denies lightheadedness, Denies palpitations, Denies dyspnea, Denies dyspnea on exertion, Denies orthopnea and Denies other (loss of consciousness) Resp Denies cough, Denies dyspnea and Denies dyspnea on exertion GI Denies hematochezia and Denies change in stool character Musc Denies abnormal gait, Denies muscle weakness, Denies numbness, Denies radiating pain into limb and Denies tingling Neuro Denies abnormal gait, Denies dizziness, Denies frequent falls, Denies numbness, Denies tingling and Denies weakness Endo Denies fatigue and Denies palpitations Physical Exam Vital Signs: Last Vital Signs Pulse 67 11/09/22 14:10 BP 88/48 L 11/09/22 14:10 Pulse Ox 98 11/09/22 14:10 Oxygen Delivery Method Room Air 11/09/22 14:10 BMI result Body Mass Index 29.8 Manual blood pressure 110/60. GENERAL APPEARANCE: in no acute distress, pleasant. NECK: no carotid bruit, no jugular venous distention. SKIN: no suspicious lesions, warm and dry. HEART: no murmurs, regular rate and rhythm. LUNGS: clear to auscultation bilaterally. ABDOMEN: soft, nontender. EXTREMITIES: no edema. PERIPHERAL PULSES: equal. NEUROLOGIC: No gross deficits, AAO X 3 Assessment & Plan Assessment & Plan (1) Stable angina: Code(s): I20.8 - Other forms of angina pectoris (2) Hypercholesterolemia: Code(s): E78.00 - Pure hypercholesterolemia, unspecified Plan 72-year-old gentleman here for follow-up. Underwent previous PCI for ST elevation WA in October [address] Mckeon. He can stop Brilinta at this stage. He should stay on aspirin lifelong. Blood pressure is well controlled. He was advised to hydrate himself in the summertime. He should have fast lipid panel once a year. His target LDL is less than 70. Thank you for allowing me to participate in the care of your patient. Please feel free to contact me if you have any questions. Medications: Discontinued ticagrelor Discontinued Reason: Doctor's Order 90 mg PO BID 180 tabs 1RF [address] I21[address]3 - ST elevation (STEMI) myocardial infarction of unspecified site Coding Level of Care Code Est Pt Level 4 (89719) Diagnoses Stable angina I20.8 Hypercholesterolemia E78.00
== END 2022-11-09 14:33 | disposition home or self-care (01) ==
PROVIDERS: Visit Provider Internal Medicine Cardiovascular Disease
DX: I20.8 Other forms of angina pectoris (principal); E78.00 Pure hypercholesterolemia, unspecified
CPT/HCPCS: 99214

== ENCOUNTER → 2022-11-09 13:36 | Outpatient (BNVA) | payer MEDICARE, SELFPAY | PROVIDERS: Visit Provider Internal Medicine Cardiovascular Disease | DX: R07.9 Chest pain, unspecified (principal); I20.8 Other forms of angina pectoris; I21.3 ST elevation (STEMI) myocardial infarction of unspecified site; I10 Essential (primary) hypertension; R73.01 Impaired fasting glucose; E78.00 Pure hypercholesterolemia, unspecified; F31.9 Bipolar disorder, unspecified; Z72.0 Tobacco use; Z95.5 Presence of coronary angioplasty implant and graft | CPT/HCPCS: 99212 ==

== ENCOUNTER 2023-04-06 08:06 | Outpatient (REF) | payer MEDICARE, SELFPAY ==
[2023-04-06 08:32] LABS: MANUAL DIFF FLAG NO
[2023-04-06 08:47] LABS: Basophils Absolute Auto 0.1 X10*3/uL (0.0-0.2); Basophils Percent Auto 0.9 % (0-2); Eosinophils Absolute Auto 0.3 X10*3/uL (0.0-0.4); Eosinophils Percent Auto 4.2 % (0-4); Hemoglobin 14.9 g/dl (14.0-18.0); Imm Gran Abs Auto 0.01 X10*3/uL (0.00-0.03); Imm Gran Pct Auto 0.1 % (0.0-0.4); Lymphocytes Absolute Auto 1.9 X10*3/uL (1.2-4.9); Lymphocytes Percent Auto 28.3 % (20-40); Mean Corpuscular HGB Conc 33.9 g/dl (31.0-36.0); Mean Corpuscular Volume 97.3 fL (80.0-98.0); Mean Platelet Volume 10.8 fL (9.4-12.4); Monocytes Absolute Auto 0.7 X10*3/uL (0.1-1.2); Monocytes Percent Auto 9.9 % (2-11); Neutrophils Absolute Auto 3.8 x10*3/uL (2.0-8.3); Neutrophils Percent Auto 56.6 % (45-73); Platelet Count 222 X10*3/uL (160-400); Red Blood Count 4.52 X10*6/uL (4.60-5.80); Red Cell Distribution Width 12.6 % (11.0-16.0); White Blood Count 6.7 X10*3/uL (4.8-10.8)
[2023-04-06 10:02] LABS: Free T4 (Free Thyroxine) 0.98 ng/dL (0.71-1.85); Thyroid Stimulating Hormone 3.75 uIU/mL (0.32-4.0)
[2023-04-06 10:21] LABS: Folate 10.8 ng/mL (> or = 4.0); Prostate Specific Antigen Scr 0.69 ng/mL (<0.05-4.0); Vitamin B12 369 pg/mL (200-900)
[2023-04-06 10:24] LABS: Alanine Aminotransferase 30 U/L (0-40); Albumin Level 3.9 g/dL (3.5-5.0); Alkaline Phosphatase 75 U/L (39-117); Anion Gap 12 (12-20); Aspartate Amino Transferase 26 U/L (5-37); Bilirubin Total 0.9 mg/dL (0.0-1.0); Blood Urea Nitrogen 18 mg/dL (9-16); Calcium 9.4 mg/dL (8.4-10.2); Carbon Dioxide 28 mmol/L (22-29); Chloride 108 mmol/L (96-108); Cholesterol 98 mg/dL (<200); Estimated Glomerular Filt Rate 53; Glucose Random 95 mg/dL (60-115); HDL Cholesterol 34 mg/dL (>40); LDL Cholesterol Calculated 46 mg/dL (<100); Potassium 4.5 mmol/L (3.3-5.1); Sodium 143 mmol/L (135-145); Triglycerides 93 mg/dL (<150)
== END 2023-04-06 08:07 | disposition home or self-care (01) ==
LOC: HO.LAB 08:06
PROVIDERS: PCP Internal Medicine; Visit Provider Internal Medicine
DX: I25.10 Atherosclerotic heart disease of native coronary artery without angina pectoris (principal); E78.00 Pure hypercholesterolemia, unspecified; Z12.5 Encounter for screening for malignant neoplasm of prostate
CPT/HCPCS: 36415; 80053; 80061; 82607; 82746; 84153; 84439; 84443; 85025

== ENCOUNTER 2023-04-08 10:43 | Outpatient (AMB) | payer MEDICARE, SELFPAY ==
--- NOTE | 2023-04-08 10:47 | AM.OFFVISMDC ---
Intake Vital Signs 04/08/23 10:48 Height 5 ft 7 in Weight 195 lb 8 oz BMI 30.6 BP 126/76 Blood Pressure Location Lt brachial Position Sitting Pulse 67 Pulse Source Pulse Oximeter Pulse Oximetry (%) 97 Oxygen Delivery Method Room Air Intake Visit Reasons: cad, hypercholesterol, schedule for SWV Amf Mechanic Required: No Accompanied by: Self / Same As Patient Allergies No Known Allergies Allergy (Verified 04/08/23 11:07) Medication List - Last Reconciled 04/08/23 by NISHA No aspirin 81 mg PO DAILY atorvastatin 80 mg PO DAILY 90 days metoprolol succinate ER 25 mg PO DAILY 90 days HPI HPI Comments History of Present Illness Details Patient is a 73-year-old male who presents today for subsequent wellness visit. Had COVID 3 weeks ago, states feeling much better. Patient is up-to-date with health preventative screenings. Patient is up-to-date with his immunizations. Patient reported that she has had a pneumonia vaccine, not on file [place] of care was reviewed with the patient and he was provided with a written screening schedule. Patient has a healthcare proxy in place and patient was encouraged to complete previously provided MOLST form and provide office copy to be scanned to chart. Complete blood work done 04/06/2023 reviewed with patient in office today. [facility] Medical History Screening for hypercholesterolemia Screening for diabetes mellitus (DM) Need for hepatitis B vaccination COVID-19 vaccine series completed Compression fracture of T12 vertebra Periumbilical hernia Tubular adenoma of colon Tardive dyskinesia History of renal calculi Squamous cell cancer of multiple sites of skin of upper arm Tobacco abuse Bipolar 2 disorder Hypercholesterolemia Surgical History Coronary angioplasty status Hx of lithotripsy Hx of colonoscopy History of cataract surgery Family History Father No problems noted. Mother No problems noted. Paternal Grandmother CAD (coronary artery disease) Paternal Grandfather Pancreatic cancer Sister Dementia Myocardial infarction Blood clotting disorder Maciel-Stovin syndrome Social History Housing: Apartment Alcohol intake: former Year quit: 1999 Patient Tobacco Use Status: Former Tobacco user Quit Date: October 2021 Tobacco use type: Cigarette Cigarettes Per Day: 14 e-Cigarette/Vaping Use: Never Used Second Hand Smoke Exposure: Yes service: No Current occupational status: retired Cognitive needs: No Hearing needs: No Vision needs: Yes Questionnaire Medicare Wellness Checkup [age] What gender do you identify with?: male During the past 4 weeks, how much have you been bothered by emotional problems such as feeling anxious, depressed, irritable, sad or downhearted, and blue?: slightly During the past 4 weeks, has your physical & emotional health limited your social activities with family, friends, neighbors, or groups?: quite a bit During the past 4 weeks, how much bodily pain have you generally had?: very mild pain During the past 4 weeks, was someone available to help you if you needed & wanted help?: yes, a little During the past 4 weeks, what was the hardest physical activity you could do for at least 2 minutes?: heavy Can you get to places out of walking distance without help? (For eg., can you travel alone on buses, taxis or drive your car?): Yes Can you go shopping for groceries or clothes without someone's help?: Yes Can you prepare your own meals?: Yes Can you do your housework without help?: Yes Because of any health problems, do you need the help of another person with your personal care needs such as eating, bathing, dressing or getting around the house?: No Can you handle your own money without help?: Yes During the past 4 weeks, how would you rate your health in general?: fair During the past 4 weeks how have things been going for you?: good & bad parts about equal Are you having difficulties driving your car?: not applicable, I don't use a car Do you always fasten your seat belt when you are in a car?: yes, sometimes During past 4 weeks, have you been bothered by the following: never: Problems using the telephone?, seldom: Falling or dizzy when standing up, Sexual problems?, Trouble eating well? and Tiredness or fatigue? and sometimes: Teeth or denture problems? Have you fallen 2 or more times in the past year?: No Are you afraid of falling?: No Are you a smoker?: no During the past 4 weeks, how many drinks of wine, beer, or other alcoholic beverages did you have?: 10 or more per week Do you exercise for about 20 minutes 3 or more times a week?: yes, all the time Have you been given information to help with the following?: no: Hazards in your house that might hurt you? and no: Keeping track of your medications? How often do you have trouble taking medicines the way you have been told to take them?: I always take medicine as prescribed How confident are you that you can control & manage most of your health problems?: very confident What is your race?: White Mini Mental State Exam (MMSE) Orientation What is the (year) (season) (date) (day) (month)?: year, season, date, day and month Score Score: 5 Activity of Daily Living Bathing - sponge bath, tub bath or shower: receives no assistance (gets in/out by self, if usual bathing means Dressing - getting clothes from closets & drawers, including inner/outer garments & fasteners.: gets clothes & gets completely dressed without help Toileting - going to the 'toilet room' for urine/bowel elimination & cleaning self/arranging clothes: goes to toilet room, cleans self, arranges clothes without help Transfer: moves in & out of bed and chair without help (may use support object) Continence: controls urination/bowel movements completely by self Feeding: feeds self without help Total Score: 0 Information obtained from: patient Using telephone: independent Traveling: dependent (takes the bus ) Shopping: independent Preparing meals: independent Housework: independent Taking medicine: independent Managing money: independent PHQ-9 Over the last 2 weeks, how often have you been bothered by any of the following problems? 1. Little interest or pleasure in doing things: not at all 2. Feeling down, depressed, or hopeless: not at all 3. Trouble falling or staying asleep, or sleeping too much: several days 4. Feeling tired or having little energy: several days 5. Poor appetite or overeating: not at all 6. Feeling bad about yourself - or that you are a failure or have let yourself or your family down: not at all 7. Trouble concentrating on things, such as reading the newspaper or watching television: not at all 8. Moving or speaking so slowly that other people could have noticed. Or the opposite - being so fidgety or restless that you have been moving around a lot more than usual: not at all 9. Thoughts that you would be better off or of hurting yourself in some way: not at all Total score: 2 Depression Screening Interpretation: Negative Depression Screening Done: Yes [id number] - PHQ-9 Billing: Yes Source: Developed by Drs. Florencio Trinidad, Kaye Vaughn, Gee Waters and colleagues, with an educational omar from [employer]. Physical Exam Vital Signs: Last Vital Signs Pulse 67 04/08/23 10:48 BP 126/76 04/08/23 10:48 Pulse Ox 97 04/08/23 10:48 Oxygen Delivery Method Room Air 04/08/23 10:48 BMI result Body Mass Index 30.6 Const General: cooperative and no acute distress Orientation/consciousness: patient oriented x3 HEENT Ears: other (whisper test: pass) Neuro General: patient oriented x3 Gait exam (Neuro): Normal gait present Coordination: tandem gait normal and Romberg test negative Assessment & Plan Assessment & Plan (1) Hypercholesterolemia: Code(s): E78.00 - Pure hypercholesterolemia, unspecified Plan: Atorvastatin 80 mg daily. Continue to follow low-cholesterol diet. (2) Medicare annual wellness visit, subsequent: Code(s): Z00.00 - Encounter for general adult medical examination without abnormal findings Plan: Follow-up in 1 year Plan Follow-up in 6 months with PCP or follow-up sooner if needed. Quality Reporting (2019) Depression/Bipolar (159/160/161/177) PHQ-9: Total score: 2 Coding Level of Care Code Medicare Subsequent (G0439) Diagnoses Hypercholesterolemia E78.00 Medicare annual wellness visit, subsequent Z00.00
[2023-04-08 10:48] VITALS: BP 126/76; PULSE 67; O2SAT 97; BMI 30.6
== END 2023-04-08 11:24 | disposition home or self-care (01) ==
PROVIDERS: PCP Internal Medicine; Visit Provider Nurse Practitioner Family
DX: E78.00 Pure hypercholesterolemia, unspecified (principal); Z00.00 Encounter for general adult medical examination without abnormal findings
CPT/HCPCS: G0439

== ENCOUNTER 2023-05-10 12:26 | Outpatient (AMB) | payer MEDICARE, SELFPAY ==
[2023-05-10 13:10] VITALS: BP 110/60; PULSE 61; BMI 31.6
--- NOTE | 2023-05-10 13:10 | MHC.OFFVIS ---
Intake Vital Signs 05/10/23 13:10 Height 5 ft 7 in Weight 201 lb 8.04 oz BMI 31.6 BP 110/60 Blood Pressure Location Lt brachial Position Sitting Pulse 61 Intake Visit Reasons: 6 month follow up Intake Note: 6 mnth f/up pt its feeling fine. Platform Attendant Required: No Accompanied by: Self / Same As Patient Allergies No Known Allergies Allergy (Verified 04/08/23 11:07) Medication List - Last Reconciled 05/10/23 by Law Irizarry MD aspirin 81 mg PO DAILY atorvastatin 80 mg PO DAILY 90 days metoprolol succinate ER 25 mg PO DAILY 90 days HPI HPI Comments History of Present Illness Details 73-year-old gentleman who has background history of tobacco abuse, bipolar disorder, hyperlipidemia and impaired fasting glucose levels who presented to [facility] in October 2021 with chest pain. He was experiencing indigestion like feeling which was not improving and some arm discomfort. His EKG showed posterior wall MS and was transferred emergently to [facility]. He underwent cardiac catheterization at that time by Dr. Hortencia Mckeon which showed nrgj-re-qkzheqod disease in LAD and circumflex and severe stenosis of the right posterolateral branch. He underwent drug-eluting stent with a 3 x 18 mm resolute brody. 11/09/22: He is here for follow-up. He has been doing well. No chest pain or shortness of breath. He has been taking medication regularly. He is asking whether he can stop Brilinta as 1 year has passed since is PCI. 05/10/23: He returns for follow-up. He said around Thanksgiving time he had COVID-19 infection. He has recovered from it but has been experiencing some shortness breath and off and on chest discomfort. He had drrh-vc-ffyrzdpe LAD and circumflex disease previously. Taking medication regularly. Blood pressure control is good. [facility] Medical History Screening for hypercholesterolemia Screening for diabetes mellitus (DM) Need for hepatitis B vaccination COVID-19 vaccine series completed Compression fracture of T12 vertebra Periumbilical hernia Tubular adenoma of colon Tardive dyskinesia History of renal calculi Squamous cell cancer of multiple sites of skin of upper arm Tobacco abuse Bipolar 2 disorder Hypercholesterolemia Surgical History Coronary angioplasty status Hx of lithotripsy Hx of colonoscopy History of cataract surgery Family History Father No problems noted. Mother No problems noted. Paternal Grandmother CAD (coronary artery disease) Paternal Grandfather Pancreatic cancer Sister Dementia Myocardial infarction Blood clotting disorder Maciel-Stovin syndrome Social History Housing: Apartment Alcohol intake: former Year quit: 1999 Patient Tobacco Use Status: Former Tobacco user Quit Date: October 2021 Tobacco use type: Cigarette Cigarettes Per Day: 14 e-Cigarette/Vaping Use: Never Used Second Hand Smoke Exposure: Yes service: No Current occupational status: retired Cognitive needs: No Hearing needs: No Vision needs: Yes Review of Systems Const Reports chills, Reports fatigue, Reports fever(s), Reports frequent falls, Reports weakness, Reports weight gain and Reports weight loss ENT Reports dizziness Card Reports chest pain, Reports leg edema, Reports lightheadedness, Reports palpitations, Reports dyspnea and Reports dyspnea on exertion Resp Reports cough, Reports dyspnea and Reports dyspnea on exertion GI Reports hematochezia Musc Reports abnormal gait, Reports muscle weakness, Reports numbness, Reports radiating pain into limb and Reports tingling Neuro Reports abnormal gait, Reports dizziness, Reports frequent falls, Reports numbness, Reports tingling and Reports weakness Endo Reports fatigue and Reports palpitations Physical Exam Vital Signs: Last Vital Signs Pulse 61 05/10/23 13:10 BP 110/60 05/10/23 13:10 BMI result Body Mass Index 31.6 GENERAL APPEARANCE: in no acute distress, pleasant. NECK: no carotid bruit, no jugular venous distention. SKIN: no suspicious lesions, warm and dry. HEART: no murmurs, regular rate and rhythm. LUNGS: clear to auscultation bilaterally. ABDOMEN: soft, nontender. EXTREMITIES: no edema. PERIPHERAL PULSES: equal. NEUROLOGIC: No gross deficits, AAO X 3 Office Procedures EKG Details: Sinus rhythm 61 beats per minute, normal axis, otherwise normal EKG, QTC 416 milliseconds. [id number], Complete Assessment & Plan Assessment & Plan (1) Stable angina: Code(s): I20.8 - Other forms of angina pectoris Plan 73-year-old gentleman with background history of coronary artery disease with posterior wall MS for which she underwent PCI to right posterolateral branch in 2021. He had residual kxzc-nw-zxigehwd disease in the LAD and circumflex at that time. He had COVID-19 infection around Thanksgiving time and since then he has been experiencing more shortness of breath and chest discomfort off and on. He also has gained weight which could be 1 potential reason for dyspnea along with COVID-19 infection. Progression of background coronary disease is 1 possibility 2. After discussion we have decided to do exercise tolerance test. He will see us back after the stress testing in 3 months. Thank you for allowing me to participate in the care of your patient. Please feel free to contact me if you have any questions. Orders: Orders CA stress test Today R06.09 - Other forms of dyspnea Coding Level of Care Code Est Pt Level 4 (40723) Diagnoses Stable angina I20.8 CPT Codes EKG - CPT: 66202-[id number], Complete ([id number])
== END 2023-05-10 13:37 | disposition home or self-care (01) ==
PROVIDERS: PCP Internal Medicine; Visit Provider Internal Medicine Cardiovascular Disease
DX: I20.8 Other forms of angina pectoris (principal)
CPT/HCPCS: 93010; 99214

== ENCOUNTER → 2023-05-10 12:26 | Outpatient (BNVA) | payer MEDICARE, SELFPAY | PROVIDERS: PCP Internal Medicine; Visit Provider Internal Medicine Cardiovascular Disease | DX: I20.89 Other forms of angina pectoris (principal) | CPT/HCPCS: 93005; 99212 ==

== ENCOUNTER → 2023-09-07 08:08 | Outpatient (REF) | payer MEDICARE, SELFPAY ==
--- NOTE | 2023-09-07 08:11 | CA_ITS ---
Acquisition Time: 2023-09-07 09:05:56 Total Exercise Time: 00:05:13 Test Indications: SOB Medications: SEE H Protocol: KORY Max HR: 130 BPM 87% of Pred: 149 BPM Max BP: 158/064 mmHG Max Work Load: 7.0 METS Exercise stress test exercise 5 min 13 sec of Kory protocol 87% MPHR, with mild SOB, without chest pains, with Ventricular bigeminy, ventricular quadrideminy, isolated PVCs, with normotensive response to exericse, without EKG changes. Test reviewed with Dr. Irizarry Referred By: Law Irizarry Overread By: Tessa Merlos
== END ==
LOC: HO.CARD 08:08
PROVIDERS: PCP Internal Medicine; Visit Provider Internal Medicine Cardiovascular Disease
DX: R06.09 Other forms of dyspnea (principal)
CPT/HCPCS: 93017

== ENCOUNTER → 2023-09-07 08:11 | Outpatient (BNV) | payer MEDICARE, SELFPAY | PROVIDERS: PCP Internal Medicine; Visit Provider Nurse Practitioner | DX: R06.02 Shortness of breath (principal); I49.8 Other specified cardiac arrhythmias | CPT/HCPCS: 93016; 93018 ==

== ENCOUNTER 2023-09-15 14:27 | Outpatient (AMB) | payer MEDICARE, SELFPAY ==
[2023-09-15 14:48] VITALS: BP 130/62; PULSE 62; O2SAT 97; BMI 31.7
--- NOTE | 2023-09-15 14:48 | MHC.OFFVIS ---
Vital Signs 09/15/23 14:48 Height 5 ft 7 in Weight 202 lb 6.15 oz BMI 31.7 BP 130/62 Blood Pressure Location Lt brachial Position Sitting Pulse 62 Pulse Source Pulse Oximeter Pulse Oximetry (%) 97 Intake Visit Reasons: 4 mth f/up Global Climate Change Researcher Required: No Accompanied by: Self / Same As Patient Allergies No Known Allergies Allergy (Verified 04/08/23 11:07) Medication List - Last Reconciled 09/15/23 by Law Irizarry MD aspirin 81 mg PO DAILY atorvastatin 80 mg PO DAILY 90 days metoprolol succinate ER 25 mg PO DAILY 90 days HPI Comments Details: 73-year-old gentleman who has background history of tobacco abuse, bipolar disorder, hyperlipidemia and impaired fasting glucose levels who presented to [facility] in October 2021 with chest pain. He was experiencing indigestion like feeling which was not improving and some arm discomfort. His EKG showed posterior wall TN and was transferred emergently to [facility]. He underwent cardiac catheterization at that time by Dr. Hortencia Mckeon which showed iyqh-qr-racumyia disease in LAD and circumflex and severe stenosis of the right posterolateral branch. He underwent drug-eluting stent with a 3 x 18 mm resolute brody. 11/09/22: He is here for follow-up. He has been doing well. No chest pain or shortness of breath. He has been taking medication regularly. He is asking whether he can stop Brilinta as 1 year has passed since is PCI. 05/10/23: He returns for follow-up. He said around Thanksgiving time he had COVID-19 infection. He has recovered from it but has been experiencing some shortness breath and off and on chest discomfort. He had rzoy-ut-imrwrsxx LAD and circumflex disease previously. Taking medication regularly. Blood pressure control is good. 09/15/2023: He is here for follow-up. He underwent exercise stress test where he was able to exercise for 15 minutes and had some premature ventricular complexes during exercise. He stopped because of dyspnea. No chest discomfort. No ischemic EKG changes noted. Saying that he has been trying to control his diet and walk but his weight has not improved. He is currently 202 lb. [facility] Medical History Screening for hypercholesterolemia Screening for diabetes mellitus (DM) Need for hepatitis B vaccination COVID-19 vaccine series completed Compression fracture of T12 vertebra Periumbilical hernia Tubular adenoma of colon Tardive dyskinesia History of renal calculi Squamous cell cancer of multiple sites of skin of upper arm Tobacco abuse Bipolar 2 disorder Hypercholesterolemia Surgical History Coronary angioplasty status Hx of lithotripsy Hx of colonoscopy History of cataract surgery Family History Father No problems noted. Mother No problems noted. Paternal Grandmother CAD (coronary artery disease) Paternal Grandfather Pancreatic cancer Sister Dementia Myocardial infarction Blood clotting disorder Maciel-Stovin syndrome Social History Housing: Apartment Alcohol intake: former Year quit: 1999 Patient Tobacco Use Status: Former Tobacco user Quit Date: October 2021 Tobacco use type: Cigarette Cigarettes Per Day: 14 e-Cigarette/Vaping Use: Never Used Second Hand Smoke Exposure: Yes service: No Current occupational status: retired Cognitive needs: No Hearing needs: No Vision needs: Yes Review of Systems Const Denies chills, Denies fatigue, Denies fever(s), Denies frequent falls, Denies weakness, Denies weight gain and Denies weight loss ENT Denies dizziness Card Denies chest pain, Denies leg edema, Denies lightheadedness, Denies palpitations, Denies dyspnea and Denies dyspnea on exertion Resp Denies cough, Denies dyspnea and Denies dyspnea on exertion GI Denies hematochezia Musc Denies abnormal gait, Denies muscle weakness, Denies numbness, Denies radiating pain into limb and Denies tingling Neuro Denies abnormal gait, Denies dizziness, Denies frequent falls, Denies numbness, Denies tingling and Denies weakness Endo Denies fatigue and Denies palpitations Physical Exam Vital Signs: Last Vital Signs Pulse 62 09/15/23 14:48 BP 130/62 09/15/23 14:48 Pulse Ox 97 09/15/23 14:48 BMI result Body Mass Index 31.7 GENERAL APPEARANCE: in no acute distress, pleasant. NECK: no carotid bruit, no jugular venous distention. SKIN: no suspicious lesions, warm and dry. HEART: no murmurs, regular rate and rhythm. LUNGS: clear to auscultation bilaterally. ABDOMEN: soft, nontender. EXTREMITIES: no edema. PERIPHERAL PULSES: equal. NEUROLOGIC: No gross deficits, AAO X 3 Assessment & Plan Assessment & Plan (1) Stable angina: Code(s): I20.8 - Other forms of angina pectoris Category: Medical (2) SAWYER (dyspnea on exertion): Code(s): R06.09 - Other forms of dyspnea Category: Medical Plan Pleasant 73 year gentleman who is here for follow-up. He has known history of coronary artery disease with posterior wall infarct in the past and posterolateral branch of right coronary artery was stented in 2021. He had mild to moderate disease in the LAD and circumflex artery at that time. Recent COVID infection and dyspnea started after that. He also has gained some weight. He underwent stress test where he was able to exercise for 5 minutes 13 seconds and no ischemic changes were noted. I have explained to him that this is not significant exercise and difficult to say that this is a normal stress test. Having said that he had COVID-19 infection as well as weight gain and his current symptom is dyspnea so a strategy of exercise and weight loss can be tried for few months. During stress test he did not have any ischemic EKG changes also. I have advised him to try to diet and exercise and lose some weight to see if his shortness of breath improves. We will see him back in 3 months. If he continues to have dyspnea then we will arrange a diagnostic cardiac catheterization. Thank you for allowing me to participate in the care of your patient. Please feel free to contact me if you have any questions. Coding Level of Care Code Est Pt Level 4 (46368) Diagnoses Stable angina I20.8 SAWYER (dyspnea on exertion) R06.09
== END 2023-09-15 15:12 | disposition home or self-care (01) ==
PROVIDERS: PCP Internal Medicine; Visit Provider Internal Medicine Cardiovascular Disease
DX: I20.89 Other forms of angina pectoris (principal); R06.09 Other forms of dyspnea
CPT/HCPCS: 99214

== ENCOUNTER → 2023-09-15 14:27 | Outpatient (BNVA) | payer MEDICARE, SELFPAY | PROVIDERS: PCP Internal Medicine; Visit Provider Internal Medicine Cardiovascular Disease | DX: I20.89 Other forms of angina pectoris (principal); R06.09 Other forms of dyspnea; Z95.5 Presence of coronary angioplasty implant and graft | CPT/HCPCS: 99212 ==

== ENCOUNTER 2023-10-08 13:47 | Outpatient (AMB) | payer MEDICARE, SELFPAY ==
[2023-10-08 13:57] VITALS: BP 138/70; PULSE 59; O2SAT 97; BMI 31.3
--- NOTE | 2023-10-08 13:57 | A.OFFPC_ITS ---
Vital Signs 10/08/23 13:57 Height 5 ft 7 in Weight 200 lb BMI 31.3 BP 138/70 Blood Pressure Location Lt brachial Position Sitting Pulse 59 Pulse Source Pulse Oximeter Pulse Oximetry (%) 97 Oxygen Delivery Method Room Air Intake Visit Reasons: 6mth f/u Allergies No Known Allergies Allergy (Verified 10/08/23 13:58) Tobacco use date assessed: 10/08/23 Fall risk assessment: No Falls in past year Last assessed Fall Risk: 10/08/23 Dental Screening Dental Screen Date: 10/08/23 Did you have a dental visit in the last 12 months?: Yes Did you have a dental problem in the last 6 months where you did not have access to dental care?: No Was dental information given to patient?: Patient has dentist HPI 6mth f/u HPI Details 73-year-old obese male smoker with hyper cholesterolemia impaired glucose tolerance coronary artery disease coming in for follow-up. Last seen in 04/21/2023. Patient's colonoscopy is up-to-date 08/2020. Review of the notes seen in 09/20/2023 by Cardiology 11/19/2021 drug-eluting stent placed underwent stress test noted PVC stop due to dyspnea advised follow-up in 3 months if still having the problem with breathing patient will have an arrangement for cardiac catheterization. [facility] Medical History Screening for hypercholesterolemia Screening for diabetes mellitus (DM) Need for hepatitis B vaccination COVID-19 vaccine series completed Compression fracture of T12 vertebra Periumbilical hernia Tubular adenoma of colon Tardive dyskinesia History of renal calculi Squamous cell cancer of multiple sites of skin of upper arm Tobacco abuse Bipolar 2 disorder Hypercholesterolemia Surgical History Coronary angioplasty status Hx of lithotripsy Hx of colonoscopy History of cataract surgery Family History Father No problems noted. Mother No problems noted. Paternal Grandmother CAD (coronary artery disease) Paternal Grandfather Pancreatic cancer Sister Dementia Myocardial infarction Blood clotting disorder Maciel-Stovin syndrome Social History Housing: Apartment Alcohol intake: former Year quit: 1999 Patient Tobacco Use Status: Former Tobacco user Tobacco use type: Cigarette Cigarettes Per Day: 14 e-Cigarette/Vaping Use: Never Used Second Hand Smoke Exposure: Yes service: No Current occupational status: retired Cognitive needs: No Hearing needs: No Vision needs: Yes Questionnaire PHQ-9 Over the last 2 weeks, how often have you been bothered by any of the following problems? 1. Little interest or pleasure in doing things: not at all 2. Feeling down, depressed, or hopeless: not at all 3. Trouble falling or staying asleep, or sleeping too much: several days 4. Feeling tired or having little energy: several days 5. Poor appetite or overeating: not at all 6. Feeling bad about yourself - or that you are a failure or have let yourself or your family down: not at all 7. Trouble concentrating on things, such as reading the newspaper or watching television: not at all 8. Moving or speaking so slowly that other people could have noticed. Or the opposite - being so fidgety or restless that you have been moving around a lot more than usual: not at all 9. Thoughts that you would be better off or of hurting yourself in some way: not at all Total score: 2 Depression Screening Interpretation: Negative Depression Screening Done: Yes 95388 - PHQ-9 Billing: Yes Source: Developed by Drs. Florencio Trinidad, Kaye Vaughn, Gee Waters and colleagues, with an educational omar from [employer]. Thrive Questionnaire Date Thrive assessed: 10/08/23 I am a: Patient What is your living situation today?: I have a steady place to live Within the past 12 months, did the food you bought not last and you didn't have the money to get more?: Never true Within the past 12 months, did you worry whether your food would run out before you got money to buy more?: Never true Do you have trouble paying for medicines?: No Do you have trouble getting transportation to medical appointments?: No Do you have trouble paying your heating and electricity bill?: No Do you have trouble taking care of your child, family member or friend?: No Do you have trouble with day-to-day activities such as bathing, preparing meals, shopping, managing finances, etc.?: No Are you currently unemployed and looking for a job?: No Are you interested in more education?: No Currently or been in a relationship where the following occur: no concerns reported THRIVE Score: 0 AUDIT C Alcohol Use Questionnaire (AUDIT-C) 1. How often do you have a drink containing alcohol?: Never 3. How often do you have six or more drinks on one occasion?: Never Total Score: 0 Score Reviewed/Action Taken: Yes MT-7 AMB Questionnaire MT-7 Date MT - 7 assessed: 10/08/23 Feeling nervous, anxious, or on edge: 0 = Not at all Not being able to stop or control worryin = Not at all Worrying too much about different things: 0 = Not at all Trouble relaxin = Not at all Being so restless that it is hard to sit still: 0 = Not at all Becoming easily annoyed or irritable: 0 = Not at all Feeling afraid as if something awful might happen: 0 = Not at all Total MT-7 score (0-4 normal; 5-9 mild; 10-14 moderate; 15-21 severe): 0 Source: Developed by Drs. Florencio Trinidad, Kaye Vaughn, Gee Waters and colleagues, with an educational omar from [employer]. Physical exam (Primary Care) Vital Signs: Last Vital Signs Pulse 59 10/08/23 13:57 BP 138/70 10/08/23 13:57 Pulse Ox 97 10/08/23 13:57 Oxygen Delivery Method Room Air 10/08/23 13:57 BMI result Body Mass Index 31.3 Tobacco/Smoking Status: Tobacco use Status Tobacco use date assessed 10/08/23 10/08/23 14:02 Patient Tobacco Use Status Former Tobacco user 10/08/23 14:02 Tobacco use type Cigarette 10/08/23 14:02 e-Cigarette/Vaping Use Never Used 10/08/23 14:02 PHQ-9: PHQ-9 Score PHQ-9: Total score 2 10/08/23 14:02 Depression Screening Interpretation: Negative Thrive Assessment: Date of Thrive Assessment Date Thrive assessed 10/08/23 10/08/23 14:02 Currently or been in a relationship where the following occur: no concerns reported Const General: alert; No acute distress Eyes Conjunctivae: conjunctivae normal Resp Auscultation: clear to auscultation bilaterally Cardio Rate: regular rate Rhythm: regular rhythm GI Inspection: Yes normal to inspection Extrem General: Yes normal to inspection and No edema Assessment and Plan Assessment & Plan (1) SAWYER (dyspnea on exertion): Code(s): R06.09 - Other forms of dyspnea Plan: Patient being followed up by Cardiology done on follow-up if the shortness of breath continues will have to have a catheterization. And patient presently still continues to complain about the breathing problem. Will order for a chest x-ray also. (2) CAD (coronary artery disease): Comment: RUBI placed 10/2021 Code(s): I25.10 - Atherosclerotic heart disease of [place] coronary artery without angina pectoris Qualifiers: Coronary Disease-Associated Artery/Lesion type: [place] artery [place] vs. transplanted heart: [place] heart Associated angina: without angina Qualified Code(s): I25.10 - Atherosclerotic heart disease of [place] coronary artery without angina pectoris Plan: Control the cholesterol, weight, blood pressure, continue with aspirin 81 mg once a day (3) Impaired fasting blood sugar: Code(s): R73.01 - Impaired fasting glucose Plan: Decrease the amount of carbohydrate intake, pasta, bread, rice and potatoes are all sugar and that is aside from all the sweet stuff, remember that fruits are good but they are Sweet also. (4) Bipolar 2 disorder: Comment: not anymore (08/2020)(Shadia Ortez) Code(s): F31.81 - Bipolar II disorder Plan: Continue with counseling and therapy (5) Hypercholesterolemia: Code(s): E78.00 - Pure hypercholesterolemia, unspecified Plan: Avoid fried foods, chicken skin, eggs, butter margarine, pastries and meat. Be it pork or beef they have a lot of cholesterol LDL goal of less than 70 and triglyceride of less than 150. 04/21/2023 last blood work (6) Obesity (BMI 30.0-34.9): Code(s): E66.9 - Obesity, unspecified Plan: Diet and exercise (7) History of renal calculi: Comment: 01/2018, October 2018, July 2022 bilateral Code(s): Z87.442 - Personal history of urinary calculi Plan: Increase oral fluids Orders: Orders Comprehensive Met. Panel Today I25.10 - Atherosclerotic heart disease of [place] coronary artery without angina pectoris Lipid Panel Today E78.00 - Pure hypercholesterolemia, unspecified, I25.10 - Atherosclerotic heart disease of [place] coronary artery without angina pectoris XR chest 2V Today R06.09 - Other forms of dyspnea Complete Blood Count Auto Diff Today I25.10 - Atherosclerotic heart disease of [place] coronary artery without angina pectoris Free T4 (Free Thyroxine) Today I25.10 - Atherosclerotic heart disease of [place] coronary artery without angina pectoris Thyroid Stimulating Hormone Today I25.10 - Atherosclerotic heart disease of [place] coronary artery without angina pectoris Vitamin B12 and Folate Today I25.10 - Atherosclerotic heart disease of [place] coronary artery without angina pectoris Coding Level of Care Code Est Pt Level 4 (52253) Diagnoses SAWYER (dyspnea on exertion) R06.09 Coronary artery disease involving [place] coronary artery of [place] heart without angina pectoris I25.10 Coronary Disease-Associated Artery/Lesion type: [place] artery [place] vs. transplanted heart: [place] heart Associated angina: without angina Impaired fasting blood sugar R73.01 Bipolar 2 disorder F31.81 Hypercholesterolemia E78.00 Obesity (BMI 30.0-34.9) E66.9 History of renal calculi Z87.442
== END 2023-10-08 14:44 | disposition home or self-care (01) ==
PROVIDERS: PCP Internal Medicine; Visit Provider Internal Medicine
DX: R06.09 Other forms of dyspnea (principal); I25.10 Atherosclerotic heart disease of native coronary artery without angina pectoris; R73.01 Impaired fasting glucose; F31.81 Bipolar II disorder; E78.00 Pure hypercholesterolemia, unspecified; Z87.442 Personal history of urinary calculi
CPT/HCPCS: 99214

== ENCOUNTER 2023-12-10 11:30 | Outpatient (REF) | payer MEDICARE, SELFPAY ==
--- NOTE | ~2023-12-10 | XR_ITS ---
EXAMINATION: XR CHEST CLINICAL INFORMATION: Dyspnea. COMPARISON: Chest x-ray dated November 10, 2021. CT scan of the abdomen and pelvis dated October 23, 2017. TECHNIQUE: 2 views of the chest were obtained. FINDINGS: No significant abnormality is noted involving the heart, lungs, mediastinum, or soft tissues. 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 Compression deformity of T12 appears unchanged compared with October 23, 2017. XR/XR chest 2V IMPRESSION: No acute finding. Question ankylosing spondylitis. Electronically signed by: Ramiro Coulter MD 02/14/2024 06:53 PM EDT
== END 2023-12-10 11:31 | disposition home or self-care (01) ==
LOC: HO.XRAY 11:30
PROVIDERS: PCP Internal Medicine; Visit Provider Internal Medicine
DX: R06.09 Other forms of dyspnea (principal)
CPT/HCPCS: 71046

== ENCOUNTER 2023-12-15 12:53 | Outpatient (AMB) | payer MEDICARE, SELFPAY ==
[2023-12-15 13:41] VITALS: BP 110/60; PULSE 64; BMI 30.7
--- NOTE | 2023-12-15 13:41 | MHC.OFFVIS ---
Vital Signs 12/15/23 13:41 Height 5 ft 7 in Weight 195 lb 12.328 oz BMI 30.7 BP 110/60 Blood Pressure Location Lt brachial Position Sitting Pulse 64 Pulse Source Pulse Oximeter Intake Visit Reasons: 3m follow up Intake Note: 3 mth f/up Estate Planning Paralegal Required: No Accompanied by: Self / Same As Patient Allergies No Known Allergies Allergy (Verified 10/08/23 13:58) Medication List - Last Reconciled 12/15/23 by Law Irizarry MD aspirin 81 mg PO DAILY atorvastatin 80 mg PO DAILY 90 days metoprolol succinate ER 25 mg PO DAILY 90 days HPI Comments Details: 73-year-old gentleman who has background history of tobacco abuse, bipolar disorder, hyperlipidemia and impaired fasting glucose levels who presented to [facility] in October 2021 with chest pain. He was experiencing indigestion like feeling which was not improving and some arm discomfort. His EKG showed posterior wall UT and was transferred emergently to [facility]. He underwent cardiac catheterization at that time by Dr. Hortencia Mckeon which showed [id number]-xl-[id number] disease in LAD and circumflex and severe stenosis of the right posterolateral branch. He underwent drug-eluting stent with a 3 x 18 mm resolute brody. 11/09/22: He is here for follow-up. He has been doing well. No chest pain or shortness of breath. He has been taking medication regularly. He is asking whether he can stop Brilinta as 1 year has passed since is PCI. 05/10/23: He returns for follow-up. He said around Thanksgiving time he had COVID-19 infection. He has recovered from it but has been experiencing some shortness breath and off and on chest discomfort. He had [id number]-filfkwwx LAD and circumflex disease previously. Taking medication regularly. Blood pressure control is good. 09/15/2023: He is here for follow-up. He underwent exercise stress test where he was able to exercise for 15 minutes and had some premature ventricular complexes during exercise. He stopped because of dyspnea. No chest discomfort. No ischemic EKG changes noted. Saying that he has been trying to control his diet and walk but his weight has not improved. He is currently 202 lb. 12/15/2023: He is here for follow-up. His current weight is 195 lb. He said he has been watching his diet and exercising regularly but continues to get dyspnea especially when he is going uphill. Blood pressure is well controlled. He is on metoprolol. No room on blood pressure to add other antianginals currently. [facility] Medical History Screening for hypercholesterolemia Screening for diabetes mellitus (DM) Need for hepatitis B vaccination COVID-19 vaccine series completed Compression fracture of T12 vertebra Periumbilical hernia Tubular adenoma of colon Tardive dyskinesia History of renal calculi Squamous cell cancer of multiple sites of skin of upper arm Tobacco abuse Bipolar 2 disorder Hypercholesterolemia Surgical History Coronary angioplasty status Hx of lithotripsy Hx of colonoscopy History of cataract surgery Family History Father No problems noted. Mother No problems noted. Paternal Grandmother CAD (coronary artery disease) Paternal Grandfather Pancreatic cancer Sister Dementia Myocardial infarction Blood clotting disorder Maciel-Stovin syndrome Social History Housing: Apartment Alcohol intake: former Year quit: 1999 Patient Tobacco Use Status: Former Tobacco user Tobacco use type: Cigarette Cigarettes Per Day: 14 e-Cigarette/Vaping Use: Never Used Second Hand Smoke Exposure: Yes service: No Current occupational status: retired Cognitive needs: No Hearing needs: No Vision needs: Yes Review of Systems Const Denies chills, Denies fatigue, Denies fever(s), Denies frequent falls, Denies weakness, Denies weight gain and Denies weight loss ENT Denies dizziness Card Denies chest pain, Denies leg edema, Denies lightheadedness, Denies palpitations, Denies dyspnea and Denies dyspnea on exertion Resp Denies cough, Denies dyspnea and Denies dyspnea on exertion GI Denies hematochezia Musc Denies abnormal gait, Denies muscle weakness, Denies numbness, Denies radiating pain into limb and Denies tingling Neuro Denies abnormal gait, Denies dizziness, Denies frequent falls, Denies numbness, Denies tingling and Denies weakness Endo Denies fatigue and Denies palpitations Physical Exam Vital Signs: Last Vital Signs Pulse 64 12/15/23 13:41 BP 110/60 12/15/23 13:41 BMI result Body Mass Index 30.7 GENERAL APPEARANCE: in no acute distress, pleasant. NECK: no carotid bruit, no jugular venous distention. SKIN: no suspicious lesions, warm and dry. HEART: no murmurs, regular rate and rhythm. LUNGS: clear to auscultation bilaterally. ABDOMEN: soft, nontender. EXTREMITIES: no edema. PERIPHERAL PULSES: equal. NEUROLOGIC: No gross deficits, AAO X 3 Assessment & Plan Assessment & Plan (1) Stable angina: Code(s): I20.8 - Other forms of angina pectoris Category: Medical (2) Hypercholesterolemia: Code(s): E78.00 - Pure hypercholesterolemia, unspecified Category: Medical (3) SAWYER (dyspnea on exertion): Code(s): R06.09 - Other forms of dyspnea Category: Medical Plan Pleasant 73-year-old gentleman who is here for follow-up. He has known history of posterior wall infarct with primary PCI in 2021. He had doey-vb-ujzsnhyn LAD stenosis and approximately 60% circumflex/OM2 stenosis at that time. Recently has been complaining of dyspnea on exertion. He underwent stress testing but it was equivocal as he was able to exercise only 5 minutes on treadmill. He tried to diet and exercise to lose some weight to see if his dyspnea improved but he continues to get shortness of breath specially when he is going uphill. Blood pressure is well controlled. We have discussed about repeating a diagnostic angiogram. He is agreeable and we are going to arrange that. My suspicion is that he has circumflex disease as progressed and that is potentially the reason he is getting shortness of breath. Thank you for allowing me to participate in the care of your patient. Please feel free to contact me if you have any questions. Orders: Orders Complete Blood Count no Diff Today I20.8 - Other forms of angina pectoris Cardiac Cath LT Diagnostic Today I20.8 - Other forms of angina pectoris Basic Metabolic Panel Today I20.8 - Other forms of angina pectoris Prothrombin Time INR Today I20.8 - Other forms of angina pectoris Coding Level of Care Code Est Pt Level 4 (24790) Diagnoses Stable angina I20.8 Hypercholesterolemia E78.00 SAWYER (dyspnea on exertion) R06.09
== END 2023-12-15 14:18 | disposition home or self-care (01) ==
PROVIDERS: PCP Internal Medicine; Visit Provider Internal Medicine Cardiovascular Disease
DX: I20.89 Other forms of angina pectoris (principal); E78.00 Pure hypercholesterolemia, unspecified; R06.09 Other forms of dyspnea
CPT/HCPCS: 99214

== ENCOUNTER → 2023-12-15 12:53 | Outpatient (BNVA) | payer MEDICARE, SELFPAY | PROVIDERS: PCP Internal Medicine; Visit Provider Internal Medicine Cardiovascular Disease | DX: I20.89 Other forms of angina pectoris (principal); E78.5 Hyperlipidemia, unspecified; E78.00 Pure hypercholesterolemia, unspecified; R06.09 Other forms of dyspnea; Z87.891 Personal history of nicotine dependence | CPT/HCPCS: 99212 ==

== ENCOUNTER 2024-01-04 09:29 | Outpatient (REF) | payer MEDICARE, SELFPAY ==
[2024-01-04 09:42] LABS: MANUAL DIFF FLAG NO
[2024-01-04 10:29] LABS: Basophils Absolute Auto 0.1 X10*3/uL (0.0-0.2); Basophils Percent Auto 0.9 % (0-2); Eosinophils Absolute Auto 0.3 X10*3/uL (0.0-0.4); Eosinophils Percent Auto 5.5 % (0-4); Hematocrit 43.3 % (42.0-52.0); Hemoglobin 15.1 g/dl (14.0-18.0); Imm Gran Abs Auto 0.01 X10*3/uL (0.00-0.03); Imm Gran Pct Auto 0.2 % (0.0-0.4); Lymphocytes Absolute Auto 1.3 X10*3/uL (1.2-4.9); Lymphocytes Percent Auto 23.7 % (20-40); Mean Corpuscular HGB Conc 34.9 g/dl (31.0-36.0); Mean Corpuscular Volume 97.5 fL (80.0-98.0); Mean Platelet Volume 10.9 fL (9.4-12.4); Monocytes Absolute Auto 0.6 X10*3/uL (0.1-1.2); Neutrophils Absolute Auto 3.2 x10*3/uL (2.0-8.3); Neutrophils Percent Auto 58.7 % (45-73); Platelet Count 188 X10*3/uL (160-400); Red Blood Count 4.44 X10*6/uL (4.60-5.80); Red Cell Distribution Width 12.6 % (11.0-16.0); White Blood Count 5.5 X10*3/uL (4.8-10.8)
[2024-01-04 10:31] LABS: Prothrombin Time 11.7 SEC (11.1-13.3)
[2024-01-04 11:10] LABS: Alanine Aminotransferase 28 U/L (0-40); Albumin Level 3.8 g/dL (3.5-5.0); Alkaline Phosphatase 80 U/L (39-117); Anion Gap 11 (12-20); Aspartate Amino Transferase 31 U/L (5-37); Blood Urea Nitrogen 19 mg/dL (9-16); Calcium 8.9 mg/dL (8.4-10.2); Carbon Dioxide 26 mmol/L (22-29); Chloride 109 mmol/L (96-108); Cholesterol 106 mg/dL (<200); Estimated Glomerular Filt Rate 51; Glucose Random 97 mg/dL (60-115); HDL Cholesterol 38 mg/dL (>40); LDL Cholesterol Calculated 56 mg/dL (<100); Potassium 4.5 mmol/L (3.3-5.1); Sodium 141 mmol/L (135-145); Total Protein 6.7 g/dL (6.5-8.0); Triglycerides 60 mg/dL (<150)
[2024-01-04 11:20] LABS: Free T4 (Free Thyroxine) 0.84 ng/dL (0.71-1.85)
[2024-01-04 11:27] LABS: Thyroid Stimulating Hormone 2.49 uIU/mL (0.32-4.0)
[2024-01-04 11:39] LABS: Folate 13.5 ng/mL (> or = 4.0); Vitamin B12 328 pg/mL (200-900)
== END 2024-01-04 09:30 | disposition home or self-care (01) ==
LOC: HO.LAB 09:29
PROVIDERS: PCP Internal Medicine; Visit Provider Internal Medicine Cardiovascular Disease
DX: I20.89 Other forms of angina pectoris (principal); I25.10 Atherosclerotic heart disease of native coronary artery without angina pectoris; E78.00 Pure hypercholesterolemia, unspecified
CPT/HCPCS: 36415; 80053; 80061; 82607; 82746; 84439; 84443; 85025; 85610

== ENCOUNTER 2024-01-06 18:19 | Emergency (ER) | payer MEDICARE, SELFPAY ==
[2024-01-06 18:25] VITALS: BP 139/70; PULSE 79; RESP 16; TEMP 36.9; O2SAT 98; BMI 30.4
--- NOTE | 2024-01-06 18:30 | ED_ITS ---
HPI - General Adult General Chief complaint: Wound/Laceration Stated complaint: bleeding from cardiogram incisions? Time Seen by Provider: 01/06/24 19:18 Source: patient Mode of arrival: ambulatory Limitations: no limitations History of Present Illness ED Provider: Brandie Butt PA-C HPI narrative: 73 y/o male with history of CAD who had cardiac cath today at [facility] with Dr. Irizarry presents for evaluation of bleeding on his dressing over his right radial artery access point that started 30 minutes ago when he went to open the door at [facility]. small amount of bleeding on the gauze on arrival. he denies any numbness, tingling, weakness in the hand. he was worried about the discoloration of the skin around the area as well. the color ir orange from the irodine. dressing removed and there was no active arterial bleeding. another pressure dressing and jessa wrap applied. MD complaint: bleeding from right radial artery insertion site Onset (ago): minute(s) Location: right and upper extremity Radiation: non-radiation Severity: mild Pain Consistency: now resolved Relieving factors: none Exacerbating factors: none Associated symptoms: denies other symptoms Treatments prior to arrival: none Related Data Home Medications ?Medication ?Instructions ?Recorded ?Confirmed aspirin 81 mg chewable tablet 81 mg PO DAILY 11/28/21 12/15/23 Previous Rx's ?Medication ?Instructions ?Recorded atorvastatin 80 mg tablet 80 mg PO DAILY 90 days #90 tabs 07/05/23 metoprolol succinate 25 mg 25 mg PO DAILY 90 days #90 tabs 10/06/23 tablet,extended release 24 hr Allergies Allergy/AdvReac Type Severity Reaction Status Date / Time No Known Allergies Allergy Verified 01/06/24 18:27 Review of Systems Review of Systems: Yes all other systems are reviewed and are negative [facility] Past Medical History Medical History Screening for hypercholesterolemia Screening for diabetes mellitus (DM) Need for hepatitis B vaccination COVID-19 vaccine series completed Compression fracture of T12 vertebra Periumbilical hernia Tubular adenoma of colon Tardive dyskinesia History of renal calculi Squamous cell cancer of multiple sites of skin of upper arm Tobacco abuse Bipolar 2 disorder Hypercholesterolemia Surgical History Coronary angioplasty status Hx of lithotripsy Hx of colonoscopy History of cataract surgery Family History Family History Father No problems noted. Mother No problems noted. Paternal Grandmother CAD (coronary artery disease) Paternal Grandfather Pancreatic cancer Sister Dementia Myocardial infarction Blood clotting disorder Maciel-Stovin syndrome Social History Social History Housing: Apartment Alcohol intake: former Year quit: 1999 Patient Tobacco Use Status: Former Tobacco user Tobacco use type: Cigarette Cigarettes Per Day: 14 e-Cigarette/Vaping Use: Never Used Second Hand Smoke Exposure: Yes service: No Current occupational status: retired Cognitive needs: No Hearing needs: No Vision needs: Yes Physical Exam ED Vital Signs: Vital Signs - 24 hr 01/06/24 18:25 01/06/24 19:19 Temperature 98.4 F 97.1 F Pulse Rate 79 75 Respiratory Rate 16 16 Blood Pressure 139/70 145/75 H Pulse Oximetry 98 98 Oxygen Delivery Method Nasal Cannula Room Air BMI result Body Mass Index 30.4 Appearance: Alert. Oriented X3. No acute distress. HEENT: normal inspection CVS: Normal heart rate and rhythm. Pulses normal. Respiratory: No respiratory distress. Skin: Skin warm and dry. Normal skin color. Normal skin turgor. No rashes. Extremities: right forearm and wrist with orange discoloration, puncture site at right radial artery is not actively bleeding, small ecchymosis <1cm without palpable hematoma, 2+ radial pulse, NV intact distally. Neuro: Oriented X 3. No motor deficit. No sensory deficit. Medical Decision Making Medical Decision Making MDM Narrative: 73 yo male s/p cardiac cathetiterization today w/ Dr. Irizarry at [facility] who presents to the ER for evaluation of bleeding from the right radial arterial access point after opening a door. No active bleeding on arrival. small bruise at the site but no hematoma. Pressure dressing applied w/ jessa wrap. Patient was counseled that the orange discoloration of his hand and forearm were from the chlorhexidine skin prep. Dr. Irizarry was tiger texted - recommended monitoring for 1 hour. if no development of active bleed or hematoma, he can be sent home after 1 hour of monitoring. after 1 hour there was no further evidence of bleeding. a new gauze and tegaderm were applied. he was advised to not lift >10 lbs for 3 days, limit use of the right hand/arm and monitor for recurring bleeding at home. stable for d/c home. Differential Diagnosis Differential Diagnoses: The differential diagnosis associated with the presentation includes Hematoma, arterial bleed, bruise, arterial injury Admission/Observation Consideration of admission/observation: Escalation of care including admission/observation considered Consult Healthcare Provider Management of the patient was discussed with: Cathodic Protection Technician Dr. Irizarry Critical Care Time Critical Care Time Critical Care Time: No Discharge Plan Discharge Clinical Impression: Bleeding at insertion site Patient Disposition: Home, Self-Care Instructions: Postoperative Bleeding (ED) Additional Instructions: DO NOT lift more than 10 lbs for the next 3 days Limit use of your right arm for the next 24 hours Monitor the gauze for any signs of recurrent bleeding Follow up with Dr. Irizarry If you develop new or worsening symptoms call 911 or come back to the ER for further evaluation. Prescriptions: No Action atorvastatin 80 mg tablet 80 mg PO DAILY 90 Days Qty: 90 1RF metoprolol succinate 25 mg tablet extended release 24 hr 25 mg PO DAILY 90 Days Qty: 90 1RF aspirin 81 mg tablet,chewable 81 mg PO DAILY Interventions: ED Discharge Assessment Last Done: 01/06/24 19:24 Print Language: Ukrainian
[2024-01-06 19:19] VITALS: BP 145/75; PULSE 75; RESP 16; TEMP 36.2; O2SAT 98
[2024-01-06 19:24] VITALS: BP 145/75; PULSE 75; RESP 16; TEMP 36.2; O2SAT 98
== END 2024-01-06 19:25 | disposition home or self-care (01) ==
LOC: HO.ED 19:21
PROVIDERS: Emergency Provider Emergency Medicine; PCP Internal Medicine
DX: L76.22 Postprocedural hemorrhage of skin and subcutaneous tissue following other procedure (principal)
CPT/HCPCS: 99282; 99283

== ENCOUNTER → 2024-01-06 23:59 | Outpatient (BNV) | payer MEDICARE, SELFPAY | PROVIDERS: PCP Internal Medicine; Visit Provider Internal Medicine Cardiovascular Disease | DX: I25.118 Atherosclerotic heart disease of native coronary artery with other forms of angina pectoris (principal); R06.02 Shortness of breath | CPT/HCPCS: 93458; 99152 ==

== ENCOUNTER 2024-01-20 12:48 | Outpatient (AMB) | payer MEDICARE, SELFPAY ==
--- NOTE | 2024-01-20 12:52 | A.OFFVIS_ITS ---
Vital Signs 01/20/24 12:53 Height 5 ft 7 in Weight 196 lb 3.382 oz BMI 30.7 BP 120/62 Blood Pressure Location Lt brachial Position Sitting Pulse 76 Pulse Source Pulse Oximeter Intake Visit Reasons: Follow up post cardiac cath Allergies No Known Allergies Allergy (Verified 01/20/24 13:15) Medication List - Last Reconciled 01/20/24 by Tessa Merlos NP aspirin 81 mg PO DAILY atorvastatin 80 mg PO DAILY 90 days metoprolol succinate ER 25 mg PO DAILY 90 days HPI Comments Details: 73-year-old male presents today for follow up after cardiac catheterization. He reports he has been doing well. He denies any chest pains, fevers, chills, or worsening shortness of breath. He actually states his breathing has improved some since the weather has been cooler. After cardiac catheterization he did visit the emergency department due to bleeding at the right radial artery after trying to open a door. That occurred later in the day after cardiac catheterization. He reports he has been doing well, eating overall very healthy diet mostly Mediterranean style. He goes for daily walks and has been thinking about rejoining the [employer] to start swimming again. [facility] Medical History Screening for hypercholesterolemia Screening for diabetes mellitus (DM) Need for hepatitis B vaccination COVID-19 vaccine series completed Compression fracture of T12 vertebra Periumbilical hernia Tubular adenoma of colon Tardive dyskinesia History of renal calculi Squamous cell cancer of multiple sites of skin of upper arm Tobacco abuse Bipolar 2 disorder Hypercholesterolemia Surgical History (Updated 01/21/24 @ 10:07 by Tessa Merlos NP) S/P cardiac catheterization Coronary angioplasty status Hx of lithotripsy Hx of colonoscopy History of cataract surgery Family History Father No problems noted. Mother No problems noted. Paternal Grandmother CAD (coronary artery disease) Paternal Grandfather Pancreatic cancer Sister Dementia Myocardial infarction Blood clotting disorder Maciel-Stovin syndrome Social History Housing: Apartment Alcohol intake: former Year quit: 1999 Patient Tobacco Use Status: Former Tobacco user Tobacco use type: Cigarette Cigarettes Per Day: 14 e-Cigarette/Vaping Use: Never Used Second Hand Smoke Exposure: Yes service: No Current occupational status: retired Cognitive needs: No Hearing needs: No Vision needs: Yes Review of Systems Const Denies weakness ENT Denies dizziness Card Denies chest pain, Denies chest pain with activity, Denies syncope, Denies rapid heart rate, Denies pedal edema, Denies edema, Denies leg edema, Denies lightheadedness, Denies palpitations, Denies dyspnea, Denies dyspnea on exertion and Denies orthopnea Resp Denies cough, Denies dyspnea and Denies dyspnea on exertion GI Denies hematochezia and Denies change in stool character Musc Denies abnormal gait, Denies muscle cramps, Denies muscle weakness, Denies numbness, Denies radiating pain into limb and Denies tingling Neuro Denies abnormal gait, Denies dizziness, Denies syncope, Denies numbness, Denies tingling and Denies weakness Endo Denies palpitations Physical Exam Vital Signs: Last Vital Signs Pulse 76 01/20/24 12:53 BP 120/62 01/20/24 12:53 BMI result Body Mass Index 30.7 Const General: healthy appearing and no acute distress Orientation/consciousness: patient oriented x3 HEENT Head: Yes normal to inspection Eyes General: appearance normal, both eyes and all related structures Neck Neck: Yes normal visual inspection Chest Chest palpation & inspection: normal inspection of the chest Resp Effort & Inspection: normal respiratory effort Auscultation: clear to auscultation bilaterally Cardio Jugular venous distension: no JVD Palpation: normal PMI Rate: regular rate Rhythm: regular rhythm Heart sounds: S1 normal heart sound present, S2 normal heart sound present, no click, no gallops, no murmurs and no rubs GI Inspection: Yes normal to inspection Palpation (GI): Soft to palpation Skin General skin exam: no rashes or lesions noted Neuro General: patient oriented x3 Extrem Other: Right raidal site healing appropriately. No bleeding, swelling, tenderness, erythema, or drainage. General: Yes normal to inspection Psych Appearance: grossly normal Assessment & Plan Assessment & Plan (1) S/P cardiac catheterization: Comment: 01/06/[address] Irizarry. Cardiac Arteries and Lesion Findings LMCA: Normal. LAD: Normal. LCx: Lesion in 2nd Ob Kaylee: Proximal subsection.100% stenosis .Chronic total occlusion. RCA: Mild luminal irregularities (<30%).There is a previous stent on RPL. Code(s): Z98.890 - Other specified postprocedural states Category: Surgical Plan S/P cardiac catherization. Right raidal site healing appropriately. No bleeding, swelling, tenderness, erythema, or drainage. Pulses distal and proximal pres ent. Patient had 1 episode of bleeding at the site later on in the day after cardiac catheterization. He went to emergency care and had a pressure bandage applied. No longer had any bleeding after. Dr. Irizarry did attempt PCI for PEANUT CLEANER of OM2. But they were unable to advance the wire and kept prolapsing into OM1. Failed PCI. Patient's breathing has improved. He denies chest pains. Reviewed signs and symptoms of angina. Recommendations of aggressive risk factor modification, aspirin 81 mg indefinitely, to maximize medical therapy. He has been on aspirin 81 mg, atorvastatin 80mg, and metoprolol 25 mg. He has adjusted his diet to a more Mediterranean style. Reviewed heart healthy options and foods to avoid. He has been going for walks and plans to rejoin the gym to start swimming again. Asked to monitor heart rate and blood pressures over the next couple of months so we can maximize medical therapy as able. Emergency care if needed. Coding Level of Care Code Est Pt Level 3 (86616) Diagnoses S/P cardiac catheterization Z98.890
[2024-01-20 12:53] VITALS: BP 120/62; PULSE 76; BMI 30.7
== END 2024-01-20 13:25 | disposition home or self-care (01) ==
PROVIDERS: PCP Internal Medicine; Visit Provider Nurse Practitioner
DX: Z98.890 Other specified postprocedural states (principal)
CPT/HCPCS: 99213

== ENCOUNTER → 2024-01-20 12:48 | Outpatient (BNVA) | payer MEDICARE, SELFPAY | PROVIDERS: PCP Internal Medicine; Visit Provider Nurse Practitioner | DX: Z98.890 Other specified postprocedural states (principal) | CPT/HCPCS: 99212 ==

== ENCOUNTER 2024-03-02 09:26 | Outpatient (REF) | payer MEDICARE, SELFPAY ==
[2024-03-02 09:54] LABS: MANUAL DIFF FLAG NO
[2024-03-02 10:26] LABS: Basophils Absolute Auto 0.1 X10*3/uL (0.0-0.2); Basophils Percent Auto 0.8 % (0-2); Eosinophils Absolute Auto 0.2 X10*3/uL (0.0-0.4); Hematocrit 43.8 % (42.0-52.0); Imm Gran Abs Auto 0.02 X10*3/uL (0.00-0.03); Imm Gran Pct Auto 0.3 % (0.0-0.4); Lymphocytes Absolute Auto 1.3 X10*3/uL (1.2-4.9); Lymphocytes Percent Auto 20.7 % (20-40); Mean Corpuscular HGB Conc 34.2 g/dl (31.0-36.0); Mean Corpuscular Hemoglobin 32.9 pg (27.0-33.0); Mean Corpuscular Volume 96.1 fL (80.0-98.0); Mean Platelet Volume 10.4 fL (9.4-12.4); Monocytes Absolute Auto 0.5 X10*3/uL (0.1-1.2); Monocytes Percent Auto 8.3 % (2-11); Neutrophils Percent Auto 65.9 % (45-73); Platelet Count 209 X10*3/uL (160-400); Red Blood Count 4.56 X10*6/uL (4.60-5.80); Red Cell Distribution Width 12.7 % (11.0-16.0)
[2024-03-02 10:34] LABS: Estimated Average Glucose 117 mg/dL; Hemoglobin A1C 158.5027 umol/L; Hemoglobin A1c % 5.7 % (<6.0); Total Hemoglobin (HGBA1C) 4068.3429 umol/L
[2024-03-02 11:07] LABS: Alanine Aminotransferase 34 U/L (0-40); Albumin Level 3.8 g/dL (3.5-5.0); Alkaline Phosphatase 74 U/L (39-117); Anion Gap 10 (12-20); Aspartate Amino Transferase 34 U/L (5-37); Bilirubin Total 0.9 mg/dL (0.0-1.0); Blood Urea Nitrogen 19 mg/dL (9-16); Calcium 9.9 mg/dL (8.4-10.2); Carbon Dioxide 28 mmol/L (22-29); Chloride 108 mmol/L (96-108); Cholesterol 104 mg/dL (<200); Estimated Glomerular Filt Rate 55; Glucose Random 94 mg/dL (60-115); HDL Cholesterol 40 mg/dL (>40); LDL Cholesterol Calculated 47 mg/dL (<100); Potassium 3.9 mmol/L (3.3-5.1); Sodium 142 mmol/L (135-145); Total Protein 7.1 g/dL (6.5-8.0); Triglycerides 88 mg/dL (<150)
[2024-03-02 11:20] LABS: Free T4 (Free Thyroxine) 0.88 ng/dL (0.71-1.85)
[2024-03-02 11:26] LABS: Thyroid Stimulating Hormone 4.23 uIU/mL (0.32-4.0)
== END 2024-03-02 09:27 | disposition home or self-care (01) ==
LOC: HO.LAB 09:26
PROVIDERS: Internal Medicine Cardiovascular Disease; PCP Internal Medicine; Visit Provider Internal Medicine
DX: I25.10 Atherosclerotic heart disease of native coronary artery without angina pectoris (principal); R79.89 Other specified abnormal findings of blood chemistry; R73.01 Impaired fasting glucose; E78.00 Pure hypercholesterolemia, unspecified
CPT/HCPCS: 36415; 80053; 80061; 83036; 83735; 84439; 84443; 85025; 85027

== ENCOUNTER 2024-03-03 12:21 | Outpatient (AMB) | payer MEDICARE, SELFPAY ==
--- NOTE | 2024-03-03 12:38 | MHC.PC.OV ---
Vital Signs 03/03/24 12:39 Height 5 ft 7 in Weight 195 lb 6 oz BMI 30.6 BP 122/72 Blood Pressure Location Lt brachial Position Sitting Pulse 63 Pulse Source Pulse Oximeter Pulse Oximetry (%) 96 Oxygen Delivery Method Room Air Intake Visit Reasons: PE Intake Note: Patient is here today for a physical. 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: No Manager Sap: Not Required per policy Accompanied by: Self / Same As Patient Allergies No Known Allergies Allergy (Verified 03/03/24 12:38) Medication List - Last Reconciled 03/03/24 by Kin Gore MD aspirin 81 mg PO DAILY atorvastatin 80 mg PO DAILY 90 days cholecalciferol (vitamin D3) 50 mcg PO DAILY metoprolol succinate ER 25 mg PO DAILY 90 days Tobacco use date assessed: 03/03/24 Fall risk assessment: No Falls in past year Last assessed Fall Risk: 03/03/24 Dental Screening Dental Screen Date: 10/08/23 HPI PE HPI Details 74-year-old obese male with coronary artery disease impaired glucose tolerance bipolar disorder hypercholesterolemia coming in for physical exam last seen in October 2023. Patient's last colonoscopy was done in 2020 5 years. Review of the notes was seen by Cardiology in January 19 status post cardiac catheterization left circumflex proximal subsection 100% stenosis with some mild luminal irregularities in the RCA attempted for PCI with failure. Aggressive risk factor modification aspirin atorvastatin 80 and metoprolol 25. L abdominal pain.L foot pain. complains of pain L sole is active [facility] Medical History (Updated 03/03/24 @ 13:08 by Kin Gore MD) Positive FIT (fecal immunochemical test) Adult general medical exam Overweight (BMI 25.0-29.9) Hyperkalemia STEMI (ST elevation myocardial infarction) SAWYER (dyspnea on exertion) Stable angina Screening for hypercholesterolemia Screening for diabetes mellitus (DM) Need for hepatitis B vaccination COVID-19 vaccine series completed Compression fracture of T12 vertebra Periumbilical hernia Tubular adenoma of colon Tardive dyskinesia History of renal calculi Squamous cell cancer of multiple sites of skin of upper arm Tobacco abuse Bipolar 2 disorder Hypercholesterolemia Surgical History (Updated 03/03/24 @ 12:45 by Kin Gore MD) Stented coronary artery S/P cardiac catheterization Coronary angioplasty status Hx of lithotripsy Hx of colonoscopy History of cataract surgery Family History Father No problems noted. Mother No problems noted. Paternal Grandmother CAD (coronary artery disease) Paternal Grandfather Pancreatic cancer Sister Dementia Myocardial infarction Blood clotting disorder Maciel-Stovin syndrome Social History (Updated 03/03/24 @ 12:51 by Kin Gore MD) Housing: Apartment Alcohol intake: former Year quit: 1999 Patient Tobacco Use Status: Former Tobacco user Tobacco use type: Cigarette Cigarettes Per Day: 14 Years Smoked: quit smoking 12/2021 did 1.5 pack e-Cigarette/Vaping Use: Never Used Second Hand Smoke Exposure: Yes service: No Current occupational status: retired Cognitive needs: No Hearing needs: No Vision needs: Yes Questionnaire PHQ-9 Over the last 2 weeks, how often have you been bothered by any of the following problems? 1. Little interest or pleasure in doing things: not at all 2. Feeling down, depressed, or hopeless: not at all 3. Trouble falling or staying asleep, or sleeping too much: not at all 4. Feeling tired or having little energy: not at all 5. Poor appetite or overeating: not at all 6. Feeling bad about yourself - or that you are a failure or have let yourself or your family down: not at all 7. Trouble concentrating on things, such as reading the newspaper or watching television: not at all 8. Moving or speaking so slowly that other people could have noticed. Or the opposite - being so fidgety or restless that you have been moving around a lot more than usual: not at all 9. Thoughts that you would be better off or of hurting yourself in some way: not at all Total score: 0 Depression Screening Interpretation: Negative Depression Screening Done: Yes Source: Developed by Drs. Florencio Trinidad, Kaye Vaughn, Gee Waters and colleagues, with an educational omar from [employer]. Thrive Questionnaire Date Thrive assessed: 10/08/23 I am a: Patient What is your living situation today?: I have a steady place to live Within the past 12 months, did the food you bought not last and you didn't have the money to get more?: Never true Within the past 12 months, did you worry whether your food would run out before you got money to buy more?: Never true Do you have trouble paying for medicines?: No Do you have trouble getting transportation to medical appointments?: No Do you have trouble paying your heating and electricity bill?: No Do you have trouble taking care of your child, family member or friend?: No Do you have trouble with day-to-day activities such as bathing, preparing meals, shopping, managing finances, etc.?: No Are you currently unemployed and looking for a job?: Yes Are you interested in more education?: Yes Please select the resources that you would like help with: Education Currently or been in a relationship where the following occur: No concerns reported THRIVE Score: 0 AUDIT C Alcohol Use Questionnaire (AUDIT-C) 1. How often do you have a drink containing alcohol?: Never Total Score: 0 MT-7 AMB Questionnaire MT-7 Date MT - 7 assessed: 10/08/23 Feeling nervous, anxious, or on edge: 0 = Not at all Not being able to stop or control worryin = Not at all Worrying too much about different things: 0 = Not at all Trouble relaxin = Not at all Being so restless that it is hard to sit still: 0 = Not at all Becoming easily annoyed or irritable: 0 = Not at all Feeling afraid as if something awful might happen: 0 = Not at all Total MT-7 score (0-4 normal; 5-9 mild; 10-14 moderate; 15-21 severe): 0 Source: Developed by Drs. Florencio Trinidad, Kaye Vaughn, Gee Waters and colleagues, with an educational omar from [employer]. Review of Systems Const Denies poor appetite and Denies weakness Eyes Denies no additional complaints ENT Reports Normal hearing present, Denies dizziness, Denies nasal congestion, Denies tinnitus and Denies sore throat Card Denies chest pain, Denies syncope, Denies rapid heart rate and Denies dyspnea Resp Denies cough and Denies dyspnea GI Denies change in stool character, Reports constipation, Denies diarrhea, Denies nausea and Denies vomiting Denies dysuria and Denies urinary frequency Neuro Reports Normal hearing present, Denies confusion, Denies dizziness, Denies syncope and Denies weakness Psych Denies confusion Physical exam (Primary Care) Vital Signs: Last Vital Signs Pulse 63 03/03/24 12:39 BP 122/72 03/03/24 12:39 Pulse Ox 96 03/03/24 12:39 Oxygen Delivery Method Room Air 03/03/24 12:39 BMI result Body Mass Index 30.6 Tobacco/Smoking Status: Tobacco use Status Tobacco use date assessed 03/03/24 03/03/24 12:43 Patient Tobacco Use Status Former Tobacco user 03/03/24 12:43 Tobacco use type Cigarette 03/03/24 12:43 e-Cigarette/Vaping Use Never Used 03/03/24 12:43 PHQ-9: PHQ-9 Score PHQ-9: Total score 0 03/03/24 12:43 Depression Screening Interpretation: Negative Thrive Assessment: Date of Thrive Assessment Date Thrive assessed 10/08/23 03/03/24 12:43 Currently or been in a relationship where the following occur: No concerns reported Const General: No confusion Orientation/consciousness: No confusion HENMT Head: Yes normocephalic Ears: external ears normal and TM's normal bilaterally Face and sinus: Yes normal facial exam Mouth: moist mucous membranes Throat: Yes tonsils normal Eyes Conjunctivae: conjunctivae normal Pupils: Equal, round and reactive pupils present and Pupil accommodation reflex normal Direct Ophthalmoscopy: normal light reflex Neck Neck: No lymphadenopathy Thyroid: Thyroid normal Chest Chest palpation & inspection: normal inspection of the chest Resp Effort & Inspection: normal respiratory effort and no audible wheezes Auscultation: clear to auscultation bilaterally, no crackles, no wheezes and lung sounds not diminished Cardio Rate: regular rate Rhythm: regular rhythm Peripheral pulses: radial pulses present and dorsalis pedis present GI Other: guaiac negative and prostate N Palpation (GI): no masses Auscultation: normal bowel sounds and normoactive bowel sounds Male General Exam: Yes normal external exam Skin General skin exam: no rashes or lesions noted Rashes: no rashes Neuro General: No confusion Cranial nerves: Yes Equal, round and reactive pupils present and Yes Normal hearing present Cognition (Neuro): normal cognition Gait exam (Neuro): Normal gait present Motor exam (neuro): 5/5 motor strength present throughout Deep tendon reflexes (DTR's): Right brachioradialis reflex intensity grade: 2+, Left brachioradialis reflex intensity grade: 2+, Right patellar reflex intensity grade: 2+ and Left patellar reflex intensity grade: 2+ Extrem General: No edema Coding Level of Care Code Est Pt Prev Care >65y(47163) Diagnoses Annual physical exam Z00.00 Coronary artery disease involving [place] coronary artery of [place] heart without angina pectoris I25.10 Coronary Disease-Associated Artery/Lesion type: [place] artery [place] vs. transplanted heart: [place] heart Associated angina: without angina Impaired fasting blood sugar R73.01 Hypercholesterolemia E78.00 Bipolar 2 disorder F31.81 Obesity (BMI 30.0-34.9) E66.9 TSH elevation R79.89 Plantar fasciitis of left foot M72.2 History of renal calculi Z87.442 Assessment & Plan Assessment & Plan (1) Annual physical exam: Code(s): Z00.00 - Encounter for general adult medical examination without abnormal findings Category: Medical Plan: Patient is advised to eat healthy, keep well hydrated, keep active and have adequate sleep. (2) CAD (coronary artery disease): Comment: RUBI placed 10/2021 Cardiac catheterization done 01/21/2024 right dominant circulation patent stent in the PLV mild disease in the RCA otherwise no significant disease in the LAD om to 100% occlusion with collaterals new compared to last angio. Advised PCI to OM2 n. Code(s): I25.10 - Atherosclerotic heart disease of [place] coronary artery without angina pectoris Category: Medical Qualifiers: Coronary Disease-Associated Artery/Lesion type: [place] artery [place] vs. transplanted heart: [place] heart Associated angina: without angina Qualified Code(s): I25.10 - Atherosclerotic heart disease of [place] coronary artery without angina pectoris Plan: Control the cholesterol, weight, blood pressure on aspirin 81 mg once (3) Impaired fasting blood sugar: Code(s): R73.01 - Impaired fasting glucose Category: Medical Plan: Decrease the amount of carbohydrate intake, pasta, bread, rice and potatoes are all sugar and that is aside from all the sweet stuff, remember that fruits are good but they are Sweet also. (4) Hypercholesterolemia: Code(s): E78.00 - Pure hypercholesterolemia, unspecified Category: Medical Plan: Avoid fried foods, chicken skin, eggs, butter margarine, pastries and meat. Be it pork or beef they have a lot of cholesterol LDL goal of less than 70 and triglyceride of less than 150 on atorvastatin 80 mg once a day (5) Bipolar 2 disorder: Comment: not anymore (08/2020)(Shadia Ortez) Code(s): F31.81 - Bipolar II disorder Category: Medical Plan: Stable (6) Obesity (BMI 30.0-34.9): Code(s): E66.9 - Obesity, unspecified Category: Medical Plan: Diet and exercise (7) TSH elevation: Code(s): R79.89 - Other specified abnormal findings of blood chemistry Category: Medical Plan: Will continue to monitor (8) Plantar fasciitis of left foot: Code(s): M72.2 - Plantar fascial fibromatosis Category: Medical Plan: discussed about treatment, gel insoles, exercise, and then referral to technical manager (9) History of renal calculi: Comment: 01/2018, October 2018, July 2022 bilateral Code(s): Z87.442 - Personal history of urinary calculi Category: Medical Plan: decline testing , increase oral fluid Orders: Orders Comprehensive Met. Panel 6 Months R73.01 - Impaired fasting glucose Hemoglobin A1c 6 Months R73.01 - Impaired fasting glucose Lipid Panel 6 Months E78.00 - Pure hypercholesterolemia, unspecified, R73.01 - Impaired fasting glucose Thyroid Stimulating Hormone 6 Months R73.01 - Impaired fasting glucose Free T4 (Free Thyroxine) 6 Months R73.01 - Impaired fasting glucose Complete Blood Count Auto Diff 6 Months R73.01 - Impaired fasting glucose Referrals Lung Cancer Screening Referral Z72.0 - Tobacco use
[2024-03-03 12:39] VITALS: BP 122/72; PULSE 63; O2SAT 96; BMI 30.6
== END 2024-03-03 13:16 | disposition home or self-care (01) ==
LOC: HO.HMCH 12:22
PROVIDERS: PCP Internal Medicine; Visit Provider Internal Medicine
DX: Z00.00 Encounter for general adult medical examination without abnormal findings (principal); F31.81 Bipolar II disorder; E66.9 Obesity, unspecified; Z68.30 Body mass index [BMI] 30.0-30.9, adult; I25.10 Atherosclerotic heart disease of native coronary artery without angina pectoris; R73.01 Impaired fasting glucose; E78.00 Pure hypercholesterolemia, unspecified; R79.89 Other specified abnormal findings of blood chemistry; M72.2 Plantar fascial fibromatosis; Z87.442 Personal history of urinary calculi

== ENCOUNTER → 2024-03-03 12:21 | Outpatient (BNVA) | payer MEDICARE, SELFPAY | PROVIDERS: PCP Internal Medicine; Visit Provider Internal Medicine | DX: Z00.01 Encounter for general adult medical examination with abnormal findings (principal); I25.10 Atherosclerotic heart disease of native coronary artery without angina pectoris; R73.01 Impaired fasting glucose; E78.00 Pure hypercholesterolemia, unspecified; F31.81 Bipolar II disorder; E66.9 Obesity, unspecified; R79.89 Other specified abnormal findings of blood chemistry; M72.2 Plantar fascial fibromatosis; Z87.442 Personal history of urinary calculi | CPT/HCPCS: 96127; 99397 ==

== ENCOUNTER 2024-05-22 13:23 | Outpatient (AMB) | payer MEDICARE, SELFPAY ==
[2024-05-22 13:36] VITALS: BP 120/60; PULSE 94; BMI 31.6
--- NOTE | 2024-05-22 13:36 | MHC.OFFVIS ---
Vital Signs 05/22/24 13:36 Height 5 ft 7 in Weight 201 lb 15.095 oz BMI 31.6 BP 120/60 Blood Pressure Location Lt brachial Position Sitting Pulse 94 Pulse Source Monitor Intake Visit Reasons: 4m follow up Intake Note: 4 mth f/up Senior Marketing Associate Required: No Accompanied by: Self / Same As Patient Allergies No Known Allergies Allergy (Verified 03/03/24 12:38) Medication List - Last Reconciled 05/22/24 by Law Irizarry MD aspirin 81 mg PO DAILY atorvastatin 80 mg PO DAILY 90 days cholecalciferol (vitamin D3) 50 mcg PO DAILY metoprolol succinate ER 25 mg PO DAILY 90 days HPI Comments Details: 74-year-old male presents today for follow up after cardiac catheterization. He reports he has been doing well. He denies any chest pains, fevers, chills, or worsening shortness of breath. He actually states his breathing has improved some since the weather has been cooler. After cardiac catheterization he did visit the emergency department due to bleeding at the right radial artery after trying to open a door. That occurred later in the day after cardiac catheterization. He reports he has been doing well, eating overall very healthy diet mostly Mediterranean style. He goes for daily walks and has been thinking about rejoining the [facility] to start swimming again. 05/22/2024: He returns for follow-up after cardiac catheterization. 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 Previously this was 60-70% stenosis. We tried to wire it with antegrade biotics escalation but we were unsuccessful. This was collateralized and we felt that this can be medically managed. He returns after the cardiac catheterization and reports that his breathing has been good. He did some physical activity recently which was more than usual and he said he was not having and puffing which was quite surprising for him. Overall clinically stable. We discussed about cardiac rehabilitation given his stable angina and he is interested in that and we are referring him for cardiac rehab. [facility] Medical History (Updated 05/22/24 @ 14:06 by Law Irizarry MD) Stable angina Positive FIT (fecal immunochemical test) Adult general medical exam Overweight (BMI 25.0-29.9) Hyperkalemia STEMI (ST elevation myocardial infarction) SAWYER (dyspnea on exertion) Screening for hypercholesterolemia Screening for diabetes mellitus (DM) Need for hepatitis B vaccination COVID-19 vaccine series completed Compression fracture of T12 vertebra Periumbilical hernia Tubular adenoma of colon Tardive dyskinesia History of renal calculi Squamous cell cancer of multiple sites of skin of upper arm Tobacco abuse Bipolar 2 disorder Hypercholesterolemia Surgical History (Reviewed 05/22/24 @ 13:38 by Marianne Cabrales [facility]) Stented coronary artery S/P cardiac catheterization Coronary angioplasty status Hx of lithotripsy Hx of colonoscopy History of cataract surgery Family History Father No problems noted. Mother No problems noted. Paternal Grandmother CAD (coronary artery disease) Paternal Grandfather Pancreatic cancer Sister Dementia Myocardial infarction Blood clotting disorder Maciel-Stovin syndrome Social History (Reviewed 05/22/24 @ 13:39 by Marianne Cabrales [facility]) Housing: Apartment Alcohol intake: former Year quit: 1999 Patient Tobacco Use Status: Former Tobacco user Tobacco use type: Cigarette Cigarettes Per Day: 14 Years Smoked: quit smoking 12/2021 did 1.5 pack e-Cigarette/Vaping Use: Never Used Second Hand Smoke Exposure: Yes service: No Current occupational status: retired Cognitive needs: No Hearing needs: No Vision needs: Yes Review of Systems Const Denies chills, Denies fatigue, Denies fever(s), Denies frequent falls, Denies weakness, Denies weight gain and Denies weight loss ENT Denies dizziness Card Denies chest pain, Denies leg edema, Denies lightheadedness, Denies palpitations, Denies dyspnea and Denies dyspnea on exertion Resp Denies cough, Denies dyspnea and Denies dyspnea on exertion GI Denies hematochezia Musc Denies abnormal gait, Denies muscle weakness, Denies numbness, Denies radiating pain into limb and Denies tingling Neuro Denies abnormal gait, Denies dizziness, Denies frequent falls, Denies numbness, Denies tingling and Denies weakness Endo Denies fatigue and Denies palpitations Physical Exam Vital Signs: Last Vital Signs Pulse 94 05/22/24 13:36 BP 120/60 05/22/24 13:36 BMI result Body Mass Index 31.6 GENERAL APPEARANCE: in no acute distress, pleasant. NECK: no carotid bruit, no jugular venous distention. SKIN: no suspicious lesions, warm and dry. HEART: no murmurs, regular rate and rhythm. LUNGS: clear to auscultation bilaterally. ABDOMEN: soft, nontender. EXTREMITIES: no edema. PERIPHERAL PULSES: equal. NEUROLOGIC: No gross deficits, AAO X 3 Office Procedures EKG Details: Sinus rhythm 94 beats per minute, premature atrial complexes, nonspecific ST changes, QTC 487 milliseconds. 61635-[id number], Complete Assessment & Plan Assessment & Plan (1) Stable angina: Code(s): I20.8 - Other forms of angina pectoris Category: Medical Plan Pleasant 74 year gentleman who is here for follow-up. He has background history of coronary artery disease with previous PCI. He has stable angina. 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 We were unable to cross the ORACLE ADF DEVELOPER with antegrade wire escalation and we decided to medically manage him. I think he would benefit from cardiac rehabilitation and he is interested in that. I am referring him for that. Continue aspirin Toprol-XL and atorvastatin as before. Thank you for allowing me to participate in the care of your patient. Please feel free to contact me if you have any questions. Orders: Orders Cardiac Rehab Today I20.8 - Other forms of angina pectoris Coding Level of Care Code Est Pt Level 4 (65644) Diagnoses Stable angina I20.8 CPT Codes EKG - CPT: 72174-[id number], Complete ([id number])
== END 2024-05-22 14:13 | disposition home or self-care (01) ==
PROVIDERS: PCP Internal Medicine; Visit Provider Internal Medicine Cardiovascular Disease
DX: I20.89 Other forms of angina pectoris (principal)
CPT/HCPCS: 93010; 99214

== ENCOUNTER → 2024-05-22 13:23 | Outpatient (BNVA) | payer MEDICARE, SELFPAY | PROVIDERS: PCP Internal Medicine; Visit Provider Internal Medicine Cardiovascular Disease | DX: I20.89 Other forms of angina pectoris (principal); R94.31 Abnormal electrocardiogram [ECG] [EKG]; I45.81 Long QT syndrome | CPT/HCPCS: 93005; 99212 ==

== ENCOUNTER → 2024-06-20 15:22 | Outpatient (BNVA) | payer MEDICARE, SELFPAY | PROVIDERS: PCP Internal Medicine; Visit Provider Internal Medicine ==

== ENCOUNTER 2024-06-21 08:18 | Outpatient (REF) | payer MEDICARE, SELFPAY ==
--- OUTSIDE RECORDS SUMMARY | 2024-06-21 08:23 | XMS_ITS | Clinical Summary ---
Author Organization [facility] Address [address] [place] [address] Care Team Providers Care Research Intern Name Role Phone Unavailable Primary Care Provider Unavailabl e Social History Tobacco Use Types Packs/Day Years Used Date Smoking Tobacco: Never Assessed Sex and Gender Information Value Date Recorded Sex Assigned at Not on file Gender Identity Not on file Sexual Orientation Not on file Plan of Treatment Not on file
--- OUTSIDE RECORDS SUMMARY | 2024-06-21 08:23 | XMS_ITS | Clinical Summary ---
Author Organization [facility] ity Address [address] [place] [address] Care Team Providers Care Engraved Roller Inspector Name Role Phone Unavailable Primary Care Provider Unavailabl e Social History Tobacco Use Types Packs/Day Years Used Date Smoking Tobacco: Never Assessed Sex and Gender Information Value Date Recorded Sex Assigned at Not on file Legal Sex Male 10:15 PM EST Gender Identity Not on file Sexual Orientation Not on file Plan of Treatment Health Maintenance Due Date Last Done Comments DTaP,Tdap,and Td Vaccines (1 - Tdap) 02/08/1971 Pneumococcal Vaccine: 50+ Ye ars (1 of 1 - PCV) 02/08/2002 Zoster Vaccines (1 of 2) 02/08/2002 COVID-19 Vaccine (1 - 2023-2 5 season) 2024 Influenza Vaccine (#1) 2024 RSV Immunization Patients 60 + Years Old (1 - 1-dose 75+ series) 02/08/2027 HIB Vaccines Aged Out No longer eligi ble based on patient's age to complete this topic HPV Vaccines Aged Out No longer eligi ble based on patient's age to complete this topic Hepatitis A Vaccines Aged Out No long er eligible based on patient's age to complete this topic Hepatitis B Vaccines Aged Out No long er eligible based on patient's age to complete this topic IPV Vaccines Aged Out No longer eligi ble based on patient's age to complete this topic MMR Vaccines Aged Out No longer eligi ble based on patient's age to complete this topic Meningococcal ACWY Vaccine Aged Out N o longer eligible based on patient's age to complete this topic Meningococcal B Vacine Aged Out No lo nger eligible based on patient's age to complete this topic RSV Immunization Patients Un art 20 months Aged Out No longer eligible b ased on patient's age to complete this topic Varicella Vaccines Aged Out No longer eligible based on patient's age to complete this topic
--- OUTSIDE RECORDS SUMMARY | 2024-06-21 08:23 | XMS_ITS | Patient Health Record ---
Author Organization [facility] Address [address] [place] [address] Care Team Providers Care Plodding Machine Operator Name Role Phone Po Kin MUNOZ Primary Care Provider Florencio Jackson Unavailable [phone] REASON FOR REFERRAL No Information MEDICATIONS Medication SIG (Take, Route, Fr equency, Duration) Notes Start Date End Date Status Vitamin E 100 UNIT 1 capsule Orally Onc e a day for 30 day(s) Active IMMUNIZATIONS Vaccine Route Administration Date Status Comme nts Influenza Unknown 12/02/2019 Administered SOCIAL HISTORY Tobacco Use: Social History Observation Description Date Details (start date - stop date) Current Smoker NA - NA Sex Assigned At : Social History Observation Description Sex Assigned At Unknown Tobacco Use/Smoking Question Answer Notes Patient is a current smoker How many cigarettes a day do you smoke? 11-20 Alcohol Screen Question Answer Notes Did you have a drink containing alcohol in the p ast year? No Points 0 Interpretation Negative PROBLEMS Problem Type ICD Code Onset Dates Problem Status W/U Status Risk SNOMED Code Notes Problem History of adenomatous polyp of colon (Z86.010) Active confirmed 383930969 Problem Heme + stool (R19.5) Active confirmed [id number] PLAN OF TREATMENT Pending Test Test Name Order Date Pathology 09/20/2020 Future Test Test Name Order Date COLONOSCOPY 08/27/2020 Insurance Providers Payer Name Payer Address Payer Phone Subscriber Number Group Number Insured Name Patient Relationship to Insured Coverage Start Date Coverage End Date [employer] [address] [place], [place] [id number] JERRY [id number] Self - patient is the insured MEDICAL (GENERAL) HISTORY Medical History History ICD Code Kidney stones Denies [place],DM,CVA,Lung disease,renal dise ase Colonoscopy with Dr. Richard with removal of tubular adenomas in 06/2015--the report describes 2 small tubular adenomas removed, as well as an apparent flat lesion in the area of the hepatic flexure that was only biopsied and shown to be a tubular adenoma-he had no colonoscopies before nor since that time + Hemoccult test in 07/2020 Bipolar Hyperlipidemia Surgical History Surgery Date(Month/Year) Cataracts
[2024-06-21 10:09] LABS: Influenza A PCR NEGATIVE (Negative); Influenza B PCR NEGATIVE (Negative); Resp Syncy Virus RNA Qual PCR NEGATIVE (Negative); SARS COV2 PCR INHOUSE NEGATIVE (Negative)
== END 2024-06-21 08:19 | disposition home or self-care (01) ==
LOC: HO.LAB 08:18
PROVIDERS: PCP Internal Medicine; Visit Provider Internal Medicine
DX: R50.9 Fever, unspecified (principal)
CPT/HCPCS: 0241U

== ENCOUNTER 2024-06-27 09:22 | Outpatient (RCR) | payer MEDICARE, SELFPAY | END 2024-07-10 06:43 | disposition home or self-care (01) | LOC: HO.CR 09:22 | PROVIDERS: PCP Internal Medicine; Visit Provider Internal Medicine Cardiovascular Disease | DX: I20.81 Angina pectoris with coronary microvascular dysfunction (principal) | CPT/HCPCS: 93798 ==

== ENCOUNTER 2024-08-29 08:21 | Outpatient (REF) | payer MEDICARE, SELFPAY ==
--- OUTSIDE RECORDS SUMMARY | 2024-08-29 08:37 | XMS_ITS | Clinical Summary ---
Author Organization [facility] ity Address [address] [place] [address] Care Team Providers Care Vice President Biostatistics Name Role Phone Unavailable Primary Care Provider [...] Vaccines (1 of 2) 02/08/2002 COVID-19 Vaccine ( - 2023-2 5 season) 2024 Influenza Vaccine (Season Ended) 2025 RSV Immunization Adult Patie nts (1 - 1-dose 75+ series) 02/08/2027 HIB [...] age to complete this topic Meningococcal B Vaccine Aged Out No l onger eligible based on patient's age to complete this topic RSV Immunization Patients Un art 20 months Aged Out No longer eligible b ased on patient's age to complete this topic Varicella Vaccines Aged Out No longer eligible based on patient's age to complete this topic
--- OUTSIDE RECORDS SUMMARY | 2024-08-29 08:37 | XMS_ITS | Clinical Summary ---
Author Organization [facility] Address [address] [place] [address] Care Team Providers Care Flight Agent Name Role Phone Unavailable Primary Care Provider Unavailabl e Social History Tobacco Use Types Packs/Day Years Used Date Smoking Tobacco: Never Assessed Sex and Gender Information Value Date Recorded Sex Assigned at Not on file Gender Identity Not on file Sexual Orientation Not on file Plan of Treatment Not on file
[2024-08-29 08:43] LABS: MANUAL DIFF FLAG NO
[2024-08-29 09:45] LABS: Basophils Absolute Auto 0.1 X10*3/uL (0.0-0.2); Eosinophils Absolute Auto 0.3 X10*3/uL (0.0-0.4); Eosinophils Percent Auto 5.1 % (0-4); Hematocrit 43.4 % (42.0-52.0); Imm Gran Abs Auto 0.02 X10*3/uL (0.00-0.03); Imm Gran Pct Auto 0.3 % (0.0-0.4); Lymphocytes Absolute Auto 1.4 X10*3/uL (1.2-4.9); Lymphocytes Percent Auto 22.4 % (20-40); Mean Corpuscular HGB Conc 34.6 g/dl (31.0-36.0); Mean Corpuscular Hemoglobin 33.5 pg (27.0-33.0); Mean Corpuscular Volume 96.9 fL (80.0-98.0); Mean Platelet Volume 10.6 fL (9.4-12.4); Monocytes Absolute Auto 0.6 X10*3/uL (0.1-1.2); Monocytes Percent Auto 9.2 % (2-11); Neutrophils Absolute Auto 3.9 x10*3/uL (2.0-8.3); Platelet Count 202 X10*3/uL (160-400); Red Blood Count 4.48 X10*6/uL (4.60-5.80); White Blood Count 6.3 X10*3/uL (4.8-10.8)
[2024-08-29 09:56] LABS: Estimated Average Glucose 114 mg/dL; Hemoglobin A1C 143.2078 umol/L; Hemoglobin A1c % 5.6 % (<6.0); Total Hemoglobin (HGBA1C) 3816.4085 umol/L
[2024-08-29 10:45] LABS: Alanine Aminotransferase 25 U/L (0-40); Albumin Level 3.8 g/dL (3.5-5.0); Alkaline Phosphatase 86 U/L (39-117); Anion Gap 11 (12-20); Aspartate Amino Transferase 29 U/L (5-37); Bilirubin Total 0.6 mg/dL (0.0-1.0); Blood Urea Nitrogen 19 mg/dL (9-16); Calcium 9.1 mg/dL (8.4-10.2); Carbon Dioxide 28 mmol/L (22-29); Chloride 108 mmol/L (96-108); Cholesterol 119 mg/dL (<200); Estimated Glomerular Filt Rate 57; Glucose Random 106 mg/dL (60-115); HDL Cholesterol 45 mg/dL (>40); LDL Cholesterol Calculated 59 mg/dL (<100); Potassium 4.3 mmol/L (3.3-5.1); Sodium 143 mmol/L (135-145); Total Protein 6.8 g/dL (6.5-8.0); Triglycerides 78 mg/dL (<150)
[2024-08-29 10:52] LABS: Thyroid Stimulating Hormone 3.78 uIU/mL (0.32-4.0)
[2024-08-29 11:08] LABS: Free T4 (Free Thyroxine) 0.93 ng/dL (0.71-1.85)
== END 2024-08-29 08:22 | disposition home or self-care (01) ==
LOC: HO.LAB 08:21
PROVIDERS: Internal Medicine Cardiovascular Disease; PCP Internal Medicine; Visit Provider Internal Medicine
DX: R73.01 Impaired fasting glucose (principal); E78.00 Pure hypercholesterolemia, unspecified
CPT/HCPCS: 36415; 80053; 80061; 83036; 84439; 84443; 85025

== ENCOUNTER 2024-08-31 14:26 | Outpatient (AMB) | payer MEDICARE, SELFPAY ==
--- NOTE | 2024-08-31 14:33 | MHC.PC.OV ---
Vital Signs 08/31/24 14:34 Height 5 ft 7 in Weight 195 lb 2 oz BMI 30.6 BP 120/58 L Blood Pressure Location Lt brachial Position Sitting Pulse 78 Pulse Source Pulse Oximeter Temp 97.1 F Temp Source Temporal Artery Scan Pulse Oximetry (%) 97 Oxygen Delivery Method Room Air Intake Visit Reasons: Coronary artery disease Field Application Engineer Required: No Accompanied by: Self / Same As Patient Allergies No Known Allergies Allergy (Verified 08/31/24 14:34) Medication List - Last Reconciled 08/31/24 by Kin Gore MD aspirin 81 mg PO DAILY atorvastatin 80 mg PO DAILY 90 days cholecalciferol (vitamin D3) 50 mcg PO DAILY metoprolol succinate ER 25 mg PO DAILY 90 days Tobacco use date assessed: 06/19/24 Dental Screening Dental Screen Date: 06/19/24 [facility] Medical History (Updated 06/19/24 @ 18:17 by Kin Gore MD) Stable angina Positive FIT (fecal immunochemical test) Adult general medical exam Overweight (BMI 25.0-29.9) Hyperkalemia STEMI (ST elevation myocardial infarction) SAWYER (dyspnea on exertion) Screening for hypercholesterolemia Screening for diabetes mellitus (DM) Need for hepatitis B vaccination COVID-19 vaccine series completed Compression fracture of T12 vertebra Periumbilical hernia Tubular adenoma of colon Tardive dyskinesia History of renal calculi Squamous cell cancer of multiple sites of skin of upper arm Tobacco abuse Bipolar 2 disorder Hypercholesterolemia Surgical History Stented coronary artery S/P cardiac catheterization Coronary angioplasty status Hx of lithotripsy Hx of colonoscopy History of cataract surgery Family History Father No problems noted. Mother No problems noted. Paternal Grandmother CAD (coronary artery disease) Paternal Grandfather Pancreatic cancer Sister Dementia Myocardial infarction Blood clotting disorder Maciel-Stovin syndrome Social History Housing: Apartment Alcohol intake: former Year quit: 1999 Patient Tobacco Use Status: Former Tobacco user Tobacco use type: Cigarette Cigarettes Per Day: 14 Years Smoked: quit smoking 12/2021 did 1.5 pack e-Cigarette/Vaping Use: Never Used Second Hand Smoke Exposure: Yes service: No Current occupational status: retired Cognitive needs: No Hearing needs: No Vision needs: Yes Questionnaire PHQ-9 Over the last 2 weeks, how often have you been bothered by any of the following problems? 1. Little interest or pleasure in doing things: not at all 2. Feeling down, depressed, or hopeless: not at all 3. Trouble falling or staying asleep, or sleeping too much: not at all 4. Feeling tired or having little energy: not at all 5. Poor appetite or overeating: not at all 6. Feeling bad about yourself - or that you are a failure or have let yourself or your family down: not at all 7. Trouble concentrating on things, such as reading the newspaper or watching television: not at all 8. Moving or speaking so slowly that other people could have noticed. Or the opposite - being so fidgety or restless that you have been moving around a lot more than usual: not at all 9. Thoughts that you would be better off or of hurting yourself in some way: not at all Total score: 0 Depression Screening Interpretation: Negative Depression Screening Done: Yes 74227 - PHQ-9 Billing: Yes Source: Developed by Drs. Florencio Trinidad, Kaye Vaughn, Gee Waters and colleagues, with an educational omar from [employer]. Thrive Questionnaire Date Thrive assessed: 06/20/24 I am a: Patient What is your living situation today?: I have a steady place to live Within the past 12 months, did the food you bought not last and you didn't have the money to get more?: Sometimes True Within the past 12 months, did you worry whether your food would run out before you got money to buy more?: Sometimes True Do you have trouble paying for medicines?: No Do you have trouble getting transportation to medical appointments?: No Do you have trouble paying your heating and electricity bill?: Yes Do you have trouble taking care of your child, family member or friend?: No Do you have trouble with day-to-day activities such as bathing, preparing meals, shopping, managing finances, etc.?: No Are you currently unemployed and looking for a job?: Yes Are you interested in more education?: Yes Please select the resources that you would like help with: Food, Utilities and Job search/training Currently or been in a relationship where the following occur: I choose not to answer THRIVE Score: 3 AUDIT C Alcohol Use Questionnaire (AUDIT-C) 1. How often do you have a drink containing alcohol?: Never Total Score: 0 MT-7 AMB Questionnaire MT-7 Date MT - 7 assessed: 10/08/23 Feeling nervous, anxious, or on edge: 0 = Not at all Not being able to stop or control worryin = Not at all Worrying too much about different things: 0 = Not at all Trouble relaxin = Not at all Being so restless that it is hard to sit still: 0 = Not at all Becoming easily annoyed or irritable: 0 = Not at all Feeling afraid as if something awful might happen: 0 = Not at all Total MT-7 score (0-4 normal; 5-9 mild; 10-14 moderate; 15-21 severe): 0 Source: Developed by Drs. Florencio Trinidad, Kaye Vaughn, Gee Waters and colleagues, with an educational omar from [employer]. Physical exam (Primary Care) Vital Signs: Last Vital Signs Temp 97.1 F 08/31/24 14:34 Pulse 78 08/31/24 14:34 BP 120/58 L 08/31/24 14:34 Pulse Ox 97 08/31/24 14:34 Oxygen Delivery Method Room Air 08/31/24 14:34 BMI result Body Mass Index 30.6 Tobacco/Smoking Status: Tobacco use Status Tobacco use date assessed 06/19/24 08/31/24 14:35 Patient Tobacco Use Status Former Tobacco user 08/31/24 14:35 Tobacco use type Cigarette 08/31/24 14:35 e-Cigarette/Vaping Use Never Used 08/31/24 14:35 PHQ-9: PHQ-9 Score PHQ-9: Total score 0 08/31/24 14:53 Depression Screening Interpretation: Negative Thrive Assessment: Date of Thrive Assessment Date Thrive assessed 06/20/24 08/31/24 14:35 Currently or been in a relationship where the following occur: I choose not to answer Const General: alert; No acute distress Eyes Conjunctivae: conjunctivae normal Resp Auscultation: clear to auscultation bilaterally Cardio Rate: regular rate Rhythm: regular rhythm GI Inspection: Yes normal to inspection Extrem General: Yes normal to inspection and No edema Coding Level of Care Code Est Pt Level 4 (96489) Diagnoses Obesity (BMI 30.0-34.9) E66.9 Coronary artery disease involving [place] coronary artery of [place] heart without angina pectoris I25.10 Associated angina: without angina Coronary Disease-Associated Artery/Lesion type: [place] artery [place] vs. transplanted heart: [place] heart Impaired fasting blood sugar R73.01 Bipolar 2 disorder F31.81 Hypercholesterolemia E78.00 Additional Codes PHQ-9 - 16508 - PHQ-9 Billing: Yes ([id number]) Assessment & Plan Assessment & Plan (1) Obesity (BMI 30.0-34.9): Code(s): E66.9 - Obesity, unspecified Category: Medical Plan: Diet and exercise (2) CAD (coronary artery disease): Comment: RUBI placed 10/2021 Cardiac catheterization done 01/21/2024 right dominant circulation patent stent in the PLV mild disease in the RCA otherwise no significant disease in the LAD om to 100% occlusion with collaterals new compared to last angio. Advised PCI to OM2 n. Code(s): I25.10 - Atherosclerotic heart disease of [place] coronary artery without angina pectoris Category: Medical Qualifiers: Associated angina: without angina Coronary Disease-Associated Artery/Lesion type: [place] artery [place] vs. transplanted heart: [place] heart Qualified Code(s): I25.10 - Atherosclerotic heart disease of [place] coronary artery without angina pectoris Plan: Control the cholesterol, weight, blood pressure. Continue with aspirin 81 mg once a day (3) Impaired fasting blood sugar: Code(s): R73.01 - Impaired fasting glucose Category: Medical Plan: Decrease the amount of carbohydrate intake, pasta, bread, rice and potatoes are all sugar and that is aside from all the sweet stuff, remember that fruits are good but they are Sweet also. (4) Bipolar 2 disorder: Comment: not anymore (08/2020)(Shadia Ortez) Code(s): F31.81 - Bipolar II disorder Category: Medical Plan: Stable (5) Hypercholesterolemia: Code(s): E78.00 - Pure hypercholesterolemia, unspecified Category: Medical Plan: Avoid fried foods, chicken skin, eggs, butter margarine, pastries and meat. Be it pork or beef they have a lot of cholesterol LDL goal of less than 70 and triglyceride of less than 150 Plan History of Present Illness The patient is a 74-year-old male presenting for a follow-up evaluation regarding chronic cough management. He has a background of multiple chronic illnesses, including coronary artery disease. A history of smoking cessation in October 2021 is noted, contributing to his efforts to reduce modifiable cardiovascular risk factors. At the previous assessment, a 6-pound weight loss was documented, reflecting dietary and lifestyle adjustments made to address obesity and hypercholesterolemia. Previously, lab results had indicated effective management of his LDL cholesterol at 59 mg/dL. His current glucose metrics reveal an elevated fasting blood sugar of 106 mg/dL, classifying him as prediabetic, yet maintaining a normal hemoglobin A1c level indicative of adequate average glucose control over previous months. His past medical history includes nephrolithiasis, with renal function tests indicating stable health. A significant aspect of his health maintenance involved the completion of a colonoscopy in August 2020, revealing tubular adenoma and resulting in recommendations for routine surveillance. Health Maintenance - Smoking cessation achieved in October 2021 - LDL cholesterol management with a goal of <70 mg/dL; current level at 59 mg/dL - Fasting blood sugar monitored; currently elevated but normoglycemic as per hemoglobin A1c - Colonoscopy performed in August 2020, with a recall advised in five years for adenoma surveillance - Aspirin 81 mg daily for cardiovascular risk reduction - Diet and exercise guidance provided Social History - Smoking cessation since October 2021 - Lifestyle modification with dietary changes and increased physical activity - No alcohol consumption for 22 years - Financial constraints impacting access to certain therapies Review of Systems - Cardiovascular: Reports past smoking cessation, stable angina, and chronic coronary artery disease - Endocrine: Reports elevated blood sugar, prediabetes - Gastrointestinal: Reports history of tubular adenoma - Renal: Reports history of nephrolithiasis - Allergy/Immunology: Reports elevated eosinophil levels consistent with allergies Physical Exam Results - Labs: Cholesterol LDL 59 mg/dL, Blood Sugar 106 mg/dL, Normal Hemoglobin A1c, Normal Eosinophil Level, Normal Creatinine 1.25 mg/dL, and GFR 57 mL/min Plan The current visit was centered on managing chronic conditions like the cough and cardiovascular risk inherent in coronary artery disease. Aspirin therapy will continue as a preventative measure. Hypercholesterolemia remains under control with existing statin medication, and lifestyle adjustments are proving beneficial in weight management. Although the patient has prediabetes levels, dietary measures will continue targeting improved blood sugar levels. Financial restrictions are acknowledged, limiting access to certain therapies like cardiac rehabilitation. Patient was informed and verbally consented to the use of an ambient scribe for clinic note documentation during this visit. Discussion Notes I reviewed the patient's ongoing management plan, emphasizing the importance of adhering to current aspirin therapy and maintaining dietary adjustments to control cholesterol levels effectively. We discussed maintaining a stable weight and diligently observing lifestyle modifications to manage prediabetes status. Alternatives such as cardiac rehabilitation were acknowledged, addressing the patient?s financial barriers in accessing these resources. Overall, the approach involves maintaining the well-managed status of chronic conditions while watching any signs of exacerbation, awaiting his routine health maintenance follow-up visits, and managing allergy symptoms as needed. Patient Instructions - Continue with prescribed aspirin 81 mg daily - Maintain current diet plan and exercise routine to manage weight and cardiovascular health - Monitor blood sugar levels and adhere to dietary guidance to prevent diabetes progression - Review any allergies and report significant symptoms - Schedule follow-up as advised for ongoing monitoring and health maintenance Medications: Refilled atorvastatin 80 mg PO DAILY 90 tabs 1RF 90 days R79.89 - Other specified abnormal findings of blood chemistry
[2024-08-31 14:34] VITALS: BP 120/58; PULSE 78; TEMP 36.2; O2SAT 97; BMI 30.6
--- OUTSIDE RECORDS SUMMARY | 2024-08-31 16:31 | XMS_ITS | Clinical Summary ---
Author Organization [facility] ity Address [address] [place] [address] Care Team Providers Care Gaming Cage Cashier Name Role Phone Unavailable Primary Care Provider [...]
== END 2024-08-31 15:08 | disposition home or self-care (01) ==
LOC: HO.HMCH 14:27
PROVIDERS: PCP Internal Medicine; Visit Provider Internal Medicine
DX: R73.01 Impaired fasting glucose (principal); E66.9 Obesity, unspecified; F31.81 Bipolar II disorder; Z68.30 Body mass index [BMI] 30.0-30.9, adult; I25.10 Atherosclerotic heart disease of native coronary artery without angina pectoris; E78.00 Pure hypercholesterolemia, unspecified

== ENCOUNTER → 2024-08-31 14:26 | Outpatient (BNVA) | payer MEDICARE, SELFPAY | PROVIDERS: PCP Internal Medicine; Visit Provider Internal Medicine | DX: I25.10 Atherosclerotic heart disease of native coronary artery without angina pectoris (principal); R73.01 Impaired fasting glucose; F31.81 Bipolar II disorder; E78.00 Pure hypercholesterolemia, unspecified; E66.9 Obesity, unspecified; Z68.30 Body mass index [BMI] 30.0-30.9, adult; Z79.82 Long term (current) use of aspirin | CPT/HCPCS: 96127; 99212 ==

== ENCOUNTER 2025-01-29 14:36 | Outpatient (AMB) | payer MEDICARE, SELFPAY ==
--- NOTE | 2025-01-29 15:45 | MHC.OFFVIS ---
Vital Signs 01/29/25 15:47 Height 5 ft 7 in Weight 191 lb 12.835 oz BMI 30.0 BP 120/64 Blood Pressure Location Lt brachial Position Sitting Pulse 68 Pulse Source Pulse Oximeter Intake Visit Reasons: 6m follow up Intake Note: 6mth f/up Telephone Service Representative Required: No Accompanied by: Self / Same As Patient Allergies No Known Allergies Allergy (Verified 08/31/24 14:34) Medication List - Last Reconciled 01/29/25 by Law Irizarry MD aspirin 81 mg PO DAILY atorvastatin 80 mg PO DAILY 90 days cholecalciferol (vitamin D3) 50 mcg PO DAILY metoprolol succinate ER 25 mg PO DAILY 90 days HPI Comments Details: 74-year-old male presents today for follow up after cardiac catheterization. He reports he has been doing well. He denies any chest pains, fevers, chills, or worsening shortness of breath. He actually states his breathing has improved some since the weather has been cooler. After cardiac catheterization he did visit the emergency department due to bleeding at the right radial artery after trying to open a door. That occurred later in the day after cardiac catheterization. He reports he has been doing well, eating overall very healthy diet mostly Mediterranean style. He goes for daily walks and has been thinking about rejoining the [facility] to start swimming again. 05/22/2024: He returns for follow-up after cardiac catheterization. 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 Previously this was 60-70% stenosis. We tried to wire it with antegrade biotics escalation but we were unsuccessful. This was collateralized and we felt that this can be medically managed. He returns after the cardiac catheterization and reports that his breathing has been good. He did some physical activity recently which was more than usual and he said he was not having and puffing which was quite surprising for him. Overall clinically stable. We discussed about cardiac rehabilitation given his stable angina and he is interested in that and we are referring him for cardiac rehab. 01/29/2025: He is here for follow-up. He is denying any chest discomfort. He just had a viral illness and has been short of breath. 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 He is saying that he is walking more than before and has been more active. PFSH Medical History Stable angina Positive FIT (fecal immunochemical test) Adult general medical exam Overweight (BMI 25.0-29.9) Hyperkalemia STEMI (ST elevation myocardial infarction) SAWYER (dyspnea on exertion) Screening for hypercholesterolemia Screening for diabetes mellitus (DM) Need for hepatitis B vaccination COVID-19 vaccine series completed Compression fracture of T12 vertebra Periumbilical hernia Tubular adenoma of colon Tardive dyskinesia History of renal calculi Squamous cell cancer of multiple sites of skin of upper arm Tobacco abuse Bipolar 2 disorder Hypercholesterolemia Surgical History Stented coronary artery S/P cardiac catheterization Coronary angioplasty status Hx of lithotripsy Hx of colonoscopy History of cataract surgery Family History Father No problems noted. Mother No problems noted. Paternal Grandmother CAD (coronary artery disease) Paternal Grandfather Pancreatic cancer Sister Dementia Myocardial infarction Blood clotting disorder Maciel-Stovin syndrome Social History Housing: Apartment Alcohol intake: former Year quit: 1999 Patient Tobacco Use Status: Former Tobacco user Tobacco use type: Cigarette Cigarettes Per Day: 14 Years Smoked: quit smoking 12/2021 did 1.5 pack e-Cigarette/Vaping Use: Never Used Second Hand Smoke Exposure: Yes service: No Current occupational status: retired Cognitive needs: No Hearing needs: No Vision needs: Yes Review of Systems Const Denies chills, Denies fatigue, Denies fever(s), Denies frequent falls, Denies weakness, Denies weight gain and Denies weight loss ENT Denies dizziness Card Denies chest pain, Denies leg edema, Denies lightheadedness, Denies palpitations, Denies dyspnea and Denies dyspnea on exertion Resp Denies cough, Denies dyspnea and Denies dyspnea on exertion GI Denies hematochezia Musc Denies abnormal gait, Denies muscle weakness, Denies numbness, Denies radiating pain into limb and Denies tingling Neuro Denies abnormal gait, Denies dizziness, Denies frequent falls, Denies numbness, Denies tingling and Denies weakness Endo Denies fatigue and Denies palpitations Physical Exam Vital Signs: Last Vital Signs Pulse 68 01/29/25 15:47 BP 120/64 01/29/25 15:47 BMI result Body Mass Index 30.0 GENERAL APPEARANCE: in no acute distress, pleasant. NECK: no carotid bruit, no jugular venous distention. SKIN: no suspicious lesions, warm and dry. HEART: no murmurs, regular rate and rhythm. LUNGS: clear to auscultation bilaterally. ABDOMEN: soft, nontender. EXTREMITIES: no edema. PERIPHERAL PULSES: equal. NEUROLOGIC: No gross deficits, AAO X 3 Assessment & Plan Assessment & Plan (1) Stable angina: Code(s): I20.8 - Other forms of angina pectoris Category: Medical Plan Pleasant 74 year gentleman who is here for follow-up. He has background history of coronary artery disease with previous PCI. He has stable angina. 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 We were unable to cross the [facility] E[employer] ARCHEOLOGY PROFESSOR with antegrade wire escalation and we decided to medically manage him. He was referred for cardiac rehabilitation but he has not done that. He is doing physical exercise on his own and actually has been more active than before. I have advised him to exercise regularly. Continue aspirin Toprol-XL and atorvastatin as before. Thank you for allowing me to participate in the care of your patient. Please feel free to contact me if you have any questions. Coding Level of Care Code Est Pt Level 4 (66132) Diagnoses Stable angina I20.8
[2025-01-29 15:47] VITALS: BP 120/64; PULSE 68
--- OUTSIDE RECORDS SUMMARY | 2025-01-29 16:27 | XMS_ITS | Clinical Summary ---
Author Organization [facility] Address [address] [place] [address] Care Team Providers Care Forensic Chemist Name Role Phone Unavailable Primary Care Provider Unavailabl e Social History Tobacco Use Types Packs/Day Years Used Date Smoking Tobacco: Never Assessed Sex and Gender Information Value Date Recorded Sex Assigned at Not on file Gender Identity Not on file Sexual Orientation Not on file Plan of Treatment Not on file
--- OUTSIDE RECORDS SUMMARY | 2025-01-29 16:27 | XMS_ITS | Patient Health Record ---
Author Organization [facility] Address [address] [place] [address] Care Team Providers Care Production Generalist Name Role Phone Po Kin MUNOZ Primary Care Provider Florencio Jackson Unavailable [phone] Reason For Referral No Information Medications Medication SIG (Take, Route, Fr equency, Duration) Notes Start Date End Date Status Vitamin E 100 UNIT 1 capsule Orally Onc e a day for 30 day(s) Active Immunizations Vaccine Route Administration Date Status Comme nts Influenza Unknown 12/02/2019 Administered Social History Tobacco Use: Social History Observation Description Date Details (start date - stop date) Current Smoker NA - NA Tobacco Use/Smoking Question Answer Notes Patient is a current smoker How many cigarettes a day do you smoke? 11-20 Alcohol Screen Question Answer Notes Did you have a drink containing alcohol in the p ast year? No Points 0 Interpretation Negative Section Notes: Smoker 10-12 cigs QD; no EtO H for over 20 years Problems Problem Type SNOMED Code ICD Code Onset Dates Problem Status W/U Status Risk Notes Problem 720750459 History of adenomatous polyp of colon (Z86.010) Active confirmed Problem 20978289 Heme + stool (R19.5) Active confirmed Plan Of Treatment Pending Test Test Name Order Date Pathology 09/20/2020 Future Test Test Name Order Date COLONOSCOPY 08/27/2020 Insurance Providers Payer Name Payer Address Payer Phone Subscriber Number Group Number Insured Name Patient Relationship to Insured Coverage Start Date Coverage End Date [employer] [address] [place], [place] [id number] Self - patient is the insured Medical (General) History Medical History History ICD Code Kidney stones Denies VT,DM,CVA,Lung disease,renal dise ase Colonoscopy with Dr. Richard [...]
--- OUTSIDE RECORDS SUMMARY | 2025-01-29 16:27 | XMS_ITS | Clinical Summary ---
Author Organization [facility] ity Address [address] [place] [address] Care Team Providers Care Billet Driller Name Role Phone Unavailable Primary Care Provider [...] 02/08/2002 Zoster Vaccines (1 of 2) 02/08/2002 Depression Screening 05/03/2024 COVID-19 Vaccine (1 - 2023-2 5 season) 2025 Influenza Vaccine (#1) 2025 RSV Immunization Adult Patie nts (1 [...]
== END 2025-01-30 08:40 | disposition home or self-care (01) ==
LOC: HO.HCS 14:37
PROVIDERS: PCP Internal Medicine; Visit Provider Internal Medicine Cardiovascular Disease
DX: I20.89 Other forms of angina pectoris (principal)
CPT/HCPCS: 99214

== ENCOUNTER → 2025-01-29 14:36 | Outpatient (BNVA) | payer MEDICARE, SELFPAY | PROVIDERS: PCP Internal Medicine; Visit Provider Internal Medicine Cardiovascular Disease | DX: R06.02 Shortness of breath (principal); I20.89 Other forms of angina pectoris | CPT/HCPCS: 99212 ==